=== PATIENT | male | born 1950 | race Caucasian/White ===

== ENCOUNTER 2016-08-21 13:25 | Emergency (ER) | payer OTHER ==
[2016-08-21] MEDS ORDERED: ASPIRIN PO STA (13:37)
--- NOTE | 2016-08-21 13:46 | EKG Report ---
Test Performed on : 08/21/2016 1:36:00 PM Test Reason : SOB Blood Pressure : / mmHG Vent. Rate : 065 BPM Atrial Rate : 065 BPM P-R Int : 146 ms QRS Dur : 142 ms QT Int : 462 ms P-R-T Axes : 071 -82 096 degrees QTc Int : 480 ms Normal sinus rhythm. Left axis deviation Nonspecific intraventricular block T wave abnormality, consider anterolateral ischemia Abnormal ECG When compared with ECG of 21-DEC-2015 14:10, Sinus rhythm. has replaced Electronic ventricular pacemaker Unconfirmed Result
[2016-08-21 14:03] LABS: MANUAL DIFF NEEDED? NO
[2016-08-21 14:08] LABS: BASO% 0.3 % (0.0-0.8); EOS# 0.29 X1000 (0.0-0.7); EOS% 2.9 % (0.0-10.0); HEMATOCRIT 41.8 % (42.0-52.0); HEMOGLOBIN 13.3 g/dL (14.0-18.0); IMM GRAN# 0.04 X1000 (0.0-0.04); IMM GRAN% 0.4 % (0.0-0.5); LYMPH# 1.64 X1000 (1.2-3.4); LYMPH% 16.4 % (20.5-51.1); MCH 28.9 PG (27-31); MCHC 31.8 g/dL (33-37); MCV 90.7 FL (81-99); MONO# 0.61 X1000 (0.11-0.59); MONO% 6.1 % (1.7-9.3); MPV 10.5 FL (7.4-10.4); NEUT% 73.9 % (42.2-75.2); PLT 233 X1000 (130-400); RBC 4.61 XMIL (4.7-6.1)
[2016-08-21 14:26] LABS: INR 1.04 (0.86-1.15); PROTIME 13.9 Seconds (12.1-15.5)
[2016-08-21 14:27] LABS: PTT PL 35.6 Seconds (22.6-43.9)
[2016-08-21 14:31] LABS: AGAP 9; ALBUMIN 3.5 g/dL (3.5-5.0); ALKALINE PHOSPHATASE 96 U/L (32-122); BUN 20 mg/dL (8-22); CHLORIDE 96 mmol/L (98-107); CK PROFILE 57 U/L (24-204); COSMO 265; GOT 16 U/L (10-34); GPT 9 U/L (10-44); MAGNESIUM 1.7 mg/dL (1.5-2.7); POTASSIUM 4.2 mmol/L (3.5-5.1); SODIUM 131 mmol/L (136-145); TCO2 26 mmol/L (25-35); TOTAL PROTEIN 7.3 g/dL (6.3-8.3)
--- NOTE | 2016-08-21 14:33 | PROVIDER DOCUMENTATION ---
HPI-Chest Pain - General Chief Complaint: Chest Pain Stated Complaint: CHEST PAIN Time Seen by Provider: 08/21/16 14:15 Source: patient, family Allergies/Adverse Reactions: Patient Allergies Allergy/AdvReac Type Severity Reaction Status Date / Time meperidine HCl * AdvReac NAUSEA/VOMI Verified 08/21/16 13:32 [From Demerol] TING morphine AdvReac NAUSEA/VOMI Verified 08/21/16 13:32 TING Home Medications: Aspirin 81 mg 12/21/15 Clopidogrel Bisulfate [Plavix] 75 mg PO 12/21/15 Hydrocodone/Acetaminophen [[place] 7.5-325 Tablet] 7.5 mg PO 12/21/15 - History of Present Illness-CP Nature of Presenting Problem: HX of vascular disease,cardiac stents,left cartoid stents and 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 pt reports intermittently past 3 months left anterior cp nonradiating with right hand numbness,dizziness,nausea. Reconnaissance Man Location: reports: other (left anterior) Chest Pain Radiation: reports: no radiation Quality of Pain: reports: aching Severity in ED: moderate (5/10) Onset/Duration: other (3 mo) Timing: still present Nitro Today/Relief: no nitro taken today Aspirin Treatment Today: no aspirin today Similar Symptoms Previously?: Yes Recently Seen Here or By Another Healthcare Provider: No Review of Systems - Adult - REVIEW OF SYSTEMS - ADULT Constitutional: denies: chills, fever, fatique Eyes: reports: no symptoms reported Ears, Nose, Mouth & Throat: reports: no symptoms reported Cardiovascular: reports: chest pain. denies: irregular heart rate, orthopnea, syncope Respiratory: denies: cough, shortness of breath, wheezing Gastrointestinal: reports: nausea. denies: abdominal pain, diarrhea, vomiting Genitourinary: reports: no symptoms reported Musculoskeletal: reports: no symptoms reported Integumentary: reports: no symptoms reported Neurological: reports: dizziness/vertigo, numbness. denies: headache/migraines , loss of balance, paresthesia Psychiatric: reports: no symptoms reported Endocrine: reports: no symptoms reported Hematologic/Lymphatic: reports: no symptoms reported Allergic/Immunologic: reports: no symptoms reported All Other Systems: Reviewed and Negative Past History - Adult - PAST MEDICAL HISTORY-ADULT Review of Records: reports: Nursing Assessment Review Major Childhood Illnesses: reports: denies history Cardiovascular: reports: [place], pacemaker, other (stents) Neurological: reports: CVA Other Conditions: reports: denies history - PRIOR SURGERIES/PROCEDURES Surgical/Procedure History: reports: other (stents) - IMMUNIZATION STATUS Childhood Immunizations: See Nurse Assessment Flu Vaccine: See Nurse Assessment - FAMILY HISTORY Family History: reviewed, not pertinent - SOCIAL HISTORY Smoking: quit less than 1 year, cigarettes, less than 1 pack/day Substance Use: none/never Physical Exam-General - PHYSICAL EXAM-ADULT Initial Vital Signs Reviewed: Yes - CONSTITUTIONAL General Appearance: alert, no apparent distress, thin - EYES Eyes: PERRL/EOMI, pink conjunctivae - HEAD, EARS, NOSE, MOUTH & THROAT HENMT: normocephalic/atraumatic, moist mucous membranes, normal ENT inspection, other (multiple missing teeth) - NECK Neck: non-tender, full range of motion, normal inspection - RESPIRATORY Respiratory: chest non-tender, lungs clear, normal breath sounds - CARDIOVASCULAR Cardiovascular: normal peripheral pulses, regular rate, rhythm, no edema - GASTROINTESTINAL (ABDOMEN) Abdominal Exam: normal bowel sounds, non tender, soft - LYMPHATIC Lymphatic: no adenopathy - MUSCULOSKELETAL Back Exam: normal inspection, no CVA tenderness, no vertebral tenderness Extremity: normal range of motion, non-tender, normal gait - SKIN Integumentary: normal color, normal turgor, warm/dry - NEUROLOGIC Neurologic: grossly normal, no motor/sensory deficits - PSYCHIATRIC Psych/Mental Status: normal mood/affect, normal thought content, normal thought process, oriented x 3 Progress - PLAN OF CARE/RESULTS Progress/Plan/Lab Results: Orders Category Date Time Status Cardiac Monitoring DIRECTED Care 08/21/16 13:37 Active Oxygen Therapy- ED Nursing DIRECTED Care 08/21/16 13:37 Active Saline Loc NOW Care 08/21/16 13:37 Active CHEST-2 VIEWS [RAD] Stat Exams 08/21/16 13:37 Taken CBC WITH ELECTRONIC DIFF [HEME] Stat Lab 08/21/16 13:52 Completed CK PROFILE [SP CHEM] Stat Lab 08/21/16 13:52 Completed COMPREHENSIVE METABOLIC PANEL [CHEM] Stat Lab 08/21/16 13:[address] D-DIMER PL [COAG] Stat Lab 08/21/16 13:52 Completed MAGNESIUM [CHEM] Stat Lab 08/21/16 13:52 Completed PRO B-NATRIURETIC PEPTIDE Stat Lab 08/21/16 13:[address] Received [address]IME WITH INR PL [COAG] Stat Lab 08/21/16 13:[address] [COAG] Stat Lab 08/21/16 13:52 Completed TROPONIN T Stat Lab 08/21/16 13:52 Completed Aspirin Med 08/21/16 13:37 Discontinued 325 mg PO STAT STA EKG [EKG] Stat Ther 08/21/16 13:37 Draft Vital Signs - 24 hr 08/21/16 13:27 Pulse Rate 75 Respiratory 18 Rate O2 Sat by Pulse 96 Oximetry Laboratory Tests 08/21/16 08/21/16 08/21/16 13:52 13:52 13:52 WBC RBC Hgb Hct MCV MCH MCHC RDW Std Deviation Plt Count MPV Immature Gran % (Auto) Neut % (Auto) Lymph % (Auto) [place] % (Auto) Eos % (Auto) Baso % (Auto) Immature Gran # (Auto) Neut # (Auto) Lymph # (Auto) [place] # (Auto) Eos # (Auto) Baso # (Auto) PT INR APTT (Factor Assay) D-Dimer Sodium 131 L Potassium 4.2 Chloride 96 L Carbon Dioxide 26 Anion Gap 9 BUN 20 Creatinine 0.9 Estimated GFR/1.73 m2 > 60 BUN/Creatinine Ratio 22 Glucose 99 Calculated Osmolality 265 Calcium 9.0 Magnesium 1.7 Total Bilirubin 0.40 AST 16 ALT 9 L Alkaline Phosphatase 96 Creatine Kinase 57 Troponin T < 0.010 Bos-T-Glvqqedysiw Pept 4061 H Total Protein 7.3 Albumin 3.5 Globulin 4.0 Albumin/Globulin Ratio 1.0 08/21/16 08/21/16 13:52 13:52 WBC 9.99 RBC 4.61 L Hgb 13.3 L Hct 41.8 L MCV 90.7 MCH 28.9 MCHC 31.8 L RDW Std Deviation 15.4 H Plt Count 233 MPV 10.5 H Immature Gran % (Auto) 0.4 Neut % (Auto) 73.9 Lymph % (Auto) 16.4 L Wake % (Auto) 6.1 Eos % (Auto) 2.9 Baso % (Auto) 0.3 Immature Gran # (Auto) 0.04 Neut # (Auto) 7.38 H Lymph # (Auto) 1.64 Wake # (Auto) 0.61 H Eos # (Auto) 0.29 Baso # (Auto) 0.03 PT 13.9 INR 1.04 APTT (Factor Assay) 35.6 D-Dimer 1.26 H Sodium Potassium Chloride Carbon Dioxide Anion Gap BUN Creatinine Estimated GFR/1.73 m2 BUN/Creatinine Ratio Glucose Calculated Osmolality Calcium Magnesium Total Bilirubin AST ALT Alkaline Phosphatase Creatine Kinase Troponin T Dkv-O-Goxtgizuhod Pept Total Protein Albumin Globulin Albumin/Globulin Ratio Pt will have a PE study done due to elevated DDimer Orders Category Date Time Status Cardiac Monitoring DIRECTED Care 08/21/16 13:37 Active Oxygen Therapy- ED Nursing DIRECTED Care 08/21/16 13:37 Active Saline Loc NOW Care 08/21/16 13:37 Active ANGIOGRAM/PULMONARY ARTERIES [CT] Stat Exams 08/21/16 15:04 Ordered CHEST-2 VIEWS [RAD] Stat Exams 08/21/16 13:37 Draft CBC WITH ELECTRONIC DIFF [HEME] Stat Lab 08/21/16 13:52 Completed CK PROFILE [SP CHEM] Stat Lab 08/21/16 13:52 Completed COMPREHENSIVE METABOLIC PANEL [CHEM] Stat Lab 08/21/16 13:[address] D-DIMER [address] [COAG] Stat Lab 08/21/16 13:52 Completed MAGNESIUM [CHEM] Stat Lab 08/21/16 13:52 Completed PRO B-NATRIURETIC PEPTIDE Stat Lab 08/21/16 13:52 Completed PROTIME WITH INR PL [COAG] Stat Lab 08/21/16 13:[address] [COAG] Stat Lab 08/21/16 13:52 Completed TROPONIN T Stat Lab 08/21/16 13:52 Completed Aspirin Med 08/21/16 13:37 Discontinued 325 mg PO STAT STA EKG [EKG] Stat Ther 08/21/16 13:37 Draft Discussed poc/treatment/dishcharge with pt; pt verbally agreed and understood. Pt also agreed to follow up with his [facility] doctors as recommended on CT. - EKG 1 Time of EKG reading by physician:: 13:36 EKG Read and Signed by:: Millie Lyn Jr EKG Interpretation (*Must complete 3 of following elements*): Abnormal ( nonspecific intraventricular block) Rate: 65 Rhythm: nsr Loyal: left - XRAY 1 XRAY: Bilateral XRAY Study: Chest Impression: Normal (no acute disease or change from prior) Comparison with other Films: no changes - CT/MRI 1 CT Study: Angiogram, other (pulmonary) Impression: Abnormal (NO PE; 18mm x12mm infiltrate vs semifold nodule HAROLDO new from prior 12/21/15. F/U rec. Marked emphysema, unchangeed RU scarring, no ptx) Departure - Departure Time of Disposition Order: 16:07 DIAGNOSIS: Pneumonia Qualifiers: Pneumonia type: due to unspecified organism Laterality: unspecified laterality Lung location: unspecified part of lung Qualified Code(s): J18.9 - Pneumonia, unspecified organism Disposition: HOME 01 Certified Medical Emergency: Emergent Condition: Stable Additional Instructions: follow up with [facility] ED Follow Up Instructions: You have been treated by a care provider in the Emergency Department. These instructions are being provided to you so you can have an understanding of how to care for yourself upon discharge. Upon discharge from the Emergency Department, you are responsible for making arrangements for follow-up care by a physician of your choice. Take all prescribed medications as directed. Return to the Emergency Department immediately for any new or worsening symptoms. You may call the Physician Referral phone number at [phone] to obtain a list of Physicians who are taking new patients. Referrals: None,PCP [Primary Care Provider] - Attestation - Scribe Verification/Attestation Scribe:: Giovanna Montgomery Acting as Scribe for:: Millie Lyn Jr Scribe documention review:: This chart was documented by a scribe and accurately reflects the service the provider performed and the decisions made by the provider.
--- NOTE | 2016-08-21 14:43 | Diag Imaging Result Document ---
PROCEDURE NAME: CHEST-2 VIEWS - 08/21/2016 CHEST X-RAY, 2 VIEWS: COMPARISON: 12/21/2015. FINDINGS: There is a stable right-sided biventricular pacemaker. Stable hyperexpanded lungs compatible with COPD. Stable significant biapical pleural scarring. Stable blunting of the costophrenic angles, most likely due to scarring. No definite infiltrates. Heart size remains normal. IMPRESSION: No acute disease or change from prior.
--- NOTE | 2016-08-21 16:12 | Diag Imaging Result Document ---
PROCEDURE NAME: ANGIOGRAM/PULMONARY ARTERIES - 08/21/2016 CT ANGIOGRAM OF THE PULMONARY ARTERIES WITH IV CONTRAST: INDICATION: Dyspnea. Elevated D-dimer. COMPARISON: 12/21/2015. FINDINGS: There is appropriate opacification of the pulmonary arteries and segmental branches. There is marked pulmonary emphysema with multiple bulla noted. Irregular increased attenuation within the posterolateral right upper lobe is unchanged when compared with previous study, most consistent with parenchymal scarring. There is irregular scarring within both lung apices. There is a new small infiltrate or semisolid nodule involving the left upper lobe measuring 18 mm, best seen on image 16 sequence 5 and image 66 of the coronal reconstructions. Otherwise, the appearance of the lungs is unchanged with linear fibrosis at the bases and prominent reticular markings. There is a stable probable cyst, which is partially visualized involving the upper pole of the left kidney. No pleural effusions or pneumothorax. Mediastinal lymphadenopathy is stable. The largest precarinal lymph node measures 12 mm in short axis.There is a right- sided pacemaker. IMPRESSION: 1. No evidence for acute pulmonary embolism. 2. New 18 x 12 mm semisolid nodule versus infiltrate within the anterior left upper lobe best seen on image 16 sequence 5 and on the coronal reconstructions. Followup is recommended. 3. Marked pulmonary emphysema. 4. Stable mediastinal lymphadenopathy. 5. Stable irregular opacity posterolateral right upper lobe suggestive of scarring. [facility]
[2016-08-21 17:56] VITALS: BP 123/62
== END 2016-08-21 17:55 | disposition home or self-care (01) ==
LOC: P.ED 13:25
DX: J18.9 Pneumonia, unspecified organism (principal); R94.31 Abnormal electrocardiogram [ECG] [EKG]; R07.89 Other chest pain; R20.0 Anesthesia of skin; R42 Dizziness and giddiness; R11.0 Nausea; K00.0 Anodontia; I25.2 Old myocardial infarction; Z79.02 Long term (current) use of antithrombotics/antiplatelets; Z79.82 Long term (current) use of aspirin; Z95.5 Presence of coronary angioplasty implant and graft; Z86.73 Personal history of transient ischemic attack (TIA), and cerebral infarction without residual deficits; Z87.891 Personal history of nicotine dependence
CPT/HCPCS: 71020; 71275; 80053; 82550; 83735; 83880; 84484; 85025; 85379; 85610; 85730; 93005; Q9967

== ENCOUNTER 2016-10-14 18:40 | Emergency (ER) | payer OTHER ==
--- NOTE | 2016-10-14 18:59 | ED EKG INTERP ---
EKG Interpretation - EKG Time of EKG reading by physician:: 18:44 EKG Read and Signed by:: Manuel Jackman EKG Interpretation (*Must complete 3 of following elements*): Abnormal Rate: 67 Rhythm: Sinus Rhythm Comments: Q2,Q3,F, NSSTTD Attestation - Scribe Verification/Attestation Scribe:: Inés Moore Acting as Scribe for:: Manuel Jackman Scribe documention review:: This chart was documented by a scribe and accurately reflects the service the provider performed and the decisions made by the provider.
--- NOTE | 2016-10-14 19:21 | PROVIDER DOCUMENTATION ---
HPI-Chest Pain <MarieDestiny A. - Last Filed: 10/14/16 19:33> - General Source: patient - History of Present Illness-CP Location: reports: central Chest Pain Radiation: reports: arms (RUE) Quality of Pain: reports: aching Severity in ED: moderate Onset/Duration: this evening Timing: still present Context/Activities at Onset: reports: none Associated Symptoms: denies: fever/chills, nausea, shortness of breath Nitro Today/Relief: no nitro taken today Aspirin Treatment Today: no aspirin today <Inés Moore - Last Filed: 10/15/16 00:11> - General Chief Complaint: Chest Pain Stated Complaint: CHEST PAIN Time Seen by Provider: 10/14/16 18:52 Allergies/Adverse Reactions: Patient Allergies Allergy/AdvReac Type Severity Reaction Status Date / Time levofloxacin [From Levaquin] Allergy Unknown ITCHING Verified 10/14/16 18:50 meperidine HCl * AdvReac Unknown NAUSEA/VOMI Verified 10/14/16 18:50 [From Demerol] TING morphine AdvReac Unknown NAUSEA/VOMI Verified 10/14/16 18:50 TING Home Medications: Home Medication List Medication Instructions Recorded Confirmed Last Taken Type Aspirin 81 mg PO DAILY 12/21/15 10/14/16 Unknown History Clopidogrel Bisulfate [Plavix] 75 mg PO DAILY 12/21/15 10/14/16 Unknown History Hydrocodone/Acetaminophen [[place] 7.5 mg PO DAILY 12/21/15 10/14/16 Unknown History 7.5-325 Tablet] Allopurinol 100 mg PO DAILY 10/14/16 10/14/16 Unknown History Carvedilol 12.5 mg PO DAILY 10/14/16 10/14/16 Unknown History ENALApril [Vasotec] 5 mg PO DAILY 10/14/16 10/14/16 Unknown History Folic Acid 1 mg PO DAILY 10/14/16 10/14/16 Unknown History Furosemide 20 mg PO DAILY 10/14/16 10/14/16 Unknown History Spironolactone 25 mg PO DAILY 10/14/16 10/14/16 Unknown History - History of Present Illness-CP Nature of Presenting Problem: 66 Y/O M presents to ED with CP. Pt complains off an onset of Chest pain and headache with onset this evening around 1700. Pt states slurred speech, with weakness in his RUE. Hx of strokes states has resolved. C/o of Headache in his posterior scalp. Chest Pain began 30 mins after dinner, states the chest pain is still present but has lessened. Denies any other symptoms , but numbness and tingling in RUE. (Inés Moore) Review of Systems - Adult - REVIEW OF SYSTEMS - ADULT Constitutional: denies: chills, fever Eyes: reports: no symptoms reported Ears, Nose, Mouth & Throat: reports: no symptoms reported Cardiovascular: reports: chest pain. denies: syncope Respiratory: denies: cough, shortness of breath, wheezing Gastrointestinal: denies: abdominal pain, diarrhea, nausea, vomiting Genitourinary: reports: no symptoms reported Musculoskeletal: reports: no symptoms reported Integumentary: reports: no symptoms reported Neurological: reports: headache/migraines, numbness. denies: loss of balance Psychiatric: reports: no symptoms reported Endocrine: reports: no symptoms reported Hematologic/Lymphatic: reports: no symptoms reported Allergic/Immunologic: reports: no symptoms reported All Other Systems: Reviewed and Negative <Inés Moore - Last Filed: 10/15/16 00:11> Past History - Adult - PAST MEDICAL HISTORY-ADULT Review of Records: reports: Old Records Reviewed, Nursing Assessment Review, Medications Reviewed, Social history reviewed & non-contributory. Major Childhood Illnesses: reports: denies history Cardiovascular: reports: [place], pacemaker, other (stents) Neurological: reports: CVA Other Conditions: reports: denies history - PRIOR SURGERIES/PROCEDURES Surgical/Procedure History: reports: other (stents) - IMMUNIZATION STATUS Childhood Immunizations: See Nurse Assessment Flu Vaccine: See Nurse Assessment - FAMILY HISTORY Family History: reviewed, not pertinent - SOCIAL HISTORY Smoking: cigarettes, less than 1 pack/day <Inés Moore - Last Filed: 10/15/16 00:11> Physical Exam-General - CONSTITUTIONAL General Appearance: appears well, alert, no apparent distress - EYES Eyes: PERRL/EOMI, pink conjunctivae, fundi clear, no AV nicking - HEAD, EARS, NOSE, MOUTH & THROAT HENMT: normocephalic/atraumatic, moist mucous membranes, normal ENT inspection, TMs normal - NECK Neck: non-tender, full range of motion, supple, normal inspection - RESPIRATORY Respiratory: chest non-tender, lungs clear, normal breath sounds, wheezing ( mild in left lower lobe) - CARDIOVASCULAR Cardiovascular: normal peripheral pulses, regular rate, rhythm - GASTROINTESTINAL (ABDOMEN) Abdominal Exam: normal bowel sounds, non tender, soft - LYMPHATIC Lymphatic: no adenopathy - MUSCULOSKELETAL Back Exam: normal inspection Extremity: normal range of motion, non-tender - SKIN Integumentary: normal color, normal turgor - NEUROLOGIC Neurologic: program evaluation consultant II-XII nml as tested, facial droop (right lip but can be from previous strokes normal smile) - PSYCHIATRIC Psych/Mental Status: normal mood/affect, normal thought content, normal thought process, oriented x 3 <Inés Moore - Last Filed: 10/15/16 00:11> Progress - CHANGE OF SHIFT REPORT (ED Provider) Report Given and Care Transferred to:: Dr. Jackman Time of Transfer: 19:33 Items Pending: Labs, XRAY Results, CT/MRI Results <Destiny Salazar - Last Filed: 10/14/16 19:33> - EKG 1 Time of EKG reading by physician:: 23:02 EKG Read and Signed by:: aMnuel Jackman EKG Interpretation (*Must complete 3 of following elements*): Abnormal Rate: 60 Rhythm: Sinus Rhythm with fusion complexes [place]: left Prior EKG Comparison: unchanged from prior Comments: Abnormal ECG - XRAY 1 XRAY Study: Chest Impression: Normal Comparison with other Films: no changes XRAY Interpretation: No changes from prior 08/21/2016 - CT/MRI 1 CT Study: Head Impression: Normal (No blood, Old right infracts) CT Results: NAD <Inés Moore - Last Filed: 10/15/16 00:11> - PLAN OF CARE/RESULTS Progress/Plan/Lab Results: Laboratory Tests 10/14/16 10/14/16 10/14/16 18:50 18:50 18:50 WBC RBC Hgb Hct MCV MCH MCHC RDW Std Deviation Plt Count MPV Immature Gran % (Auto) Neut % (Auto) Lymph % (Auto) [place] % (Auto) Eos % (Auto) Baso % (Auto) Immature Gran # (Auto) Neut # (Auto) Lymph # (Auto) [place] # (Auto) Eos # (Auto) Baso # (Auto) PT INR APTT (Factor Assay) Sodium 134 L Potassium 4.4 Chloride 95 L Carbon Dioxide 26 Anion Gap 14 BUN 23 H Creatinine 1.5 H Estimated GFR/1.73 m2 47 BUN/Creatinine Ratio 15 Glucose 117 H Calculated Osmolality 273 Calcium 10.7 H Magnesium 1.9 Total Bilirubin 0.80 AST 16 ALT 12 Alkaline Phosphatase 105 Creatine Kinase 53 Troponin T < 0.010 Esl-N-Astwqinhiaw Pept 2378 H Total Protein 9.3 H Albumin 4.7 Globulin 5.0 Albumin/Globulin Ratio 1.0 10/14/16 10/14/16 10/14/16 18:50 18:50 23:05 WBC 8.65 RBC 5.60 Hgb 15.9 Hct 49.7 MCV 88.8 MCH 28.4 MCHC 32.0 L RDW Std Deviation 16.9 H Plt Count 315 MPV 10.2 Immature Gran % (Auto) 0.3 Neut % (Auto) 70.2 Lymph % (Auto) 19.7 L [place] % (Auto) 6.4 Eos % (Auto) 2.9 Baso % (Auto) 0.5 Immature Gran # (Auto) 0.03 Neut # (Auto) 6.08 Lymph # (Auto) 1.70 [place] # (Auto) 0.55 Eos # (Auto) 0.25 Baso # (Auto) 0.04 PT 13.7 INR 1.02 APTT (Factor Assay) 34.5 Sodium Potassium Chloride Carbon Dioxide Anion Gap BUN Creatinine Estimated GFR/1.73 m2 BUN/Creatinine Ratio Glucose Calculated Osmolality Calcium Magnesium Total Bilirubin AST ALT Alkaline Phosphatase Creatine Kinase Troponin T < 0.010 Xbq-I-Fvxgnppwepa Pept Total Protein Albumin Globulin Albumin/Globulin Ratio Orders Category Date Time Status Cardiac Monitoring DIRECTED Care 10/14/16 19:20 Active Oxygen Therapy- ED Nursing DIRECTED Care 10/14/16 19:20 Active CHEST-2 VIEWS [RAD] Stat Exams 10/14/16 19:20 Taken HEAD W/O CONTRAST [CT] Stat Exams 10/14/16 19:21 Draft CBC WITH ELECTRONIC DIFF [HEME] Stat Lab 10/14/16 18:50 Completed CK PROFILE [SP CHEM] Stat Lab 10/14/16 18:50 Completed COMPREHENSIVE METABOLIC PANEL [CHEM] Stat Lab 10/14/16 18:50 Completed MAGNESIUM [CHEM] Stat Lab 10/14/16 18:50 Completed PRO B-NATRIURETIC PEPTIDE Stat Lab 10/14/16 18:50 Completed PROTIME WITH INR PL [COAG] Stat Lab 10/14/16 18:[address] [COAG] Stat Lab 10/14/16 18:50 Completed TROPONIN T Stat Lab 10/14/16 18:50 Completed TROPONIN T Stat Lab 10/14/16 23:05 Completed EKG [EKG] Stat Ther 10/14/16 22:34 Ordered Vital Signs - 24 hr 10/14/16 10/14/16 10/14/16 18:43 19:45 21:19 Temperature 98 F 98.7 F 98.5 F Pulse Rate 77 63 60 Respiratory 18 20 25 H Rate Blood Pressure 88/52 96/52 115/23 O2 Sat by Pulse 98 96 97 Oximetry (Inés Moore) Departure <Destiny Salazar - Last Filed: 10/14/16 19:33> - Departure Time of Disposition Order: 00:11 Certified Medical Emergency: Emergent <Inés Moore - Last Filed: 10/15/16 00:11> - Departure DIAGNOSIS: Ischemic heart disease, Dehydration COPD (chronic obstructive pulmonary disease) Qualifiers: COPD type: unspecified COPD Qualified Code(s): J44.9 - Chronic obstructive pulmonary disease, unspecified CHF (congestive heart failure) Qualifiers: Congestive heart failure type: unspecified congestive heart failure type Congestive heart failure chronicity: unspecified congestive heart failure chronicity Qualified Code(s): I50.9 - Heart failure, unspecified Disposition: HOME 01 Condition: Stable Additional Instructions: Follow up with [facility] ED Follow Up Instructions: You have been treated by a care provider in the Emergency Department. These instructions are being provided to you so you can have an understanding of how to care for yourself upon discharge. Upon discharge from the Emergency Department, you are responsible for making arrangements for follow-up care by a physician of your choice. Take all prescribed medications as directed. Return to the Emergency Department immediately for any new or worsening symptoms. You may call the Physician Referral phone number at [phone] to obtain a list of Physicians who are taking new patients. Referrals: None,PCP [Primary Care Provider] - Attestation - Scribe Verification/Attestation Scribe:: Inés Moore Acting as Scribe for:: Manuel Jackman Scribe documention review:: This chart was documented by a scribe and accurately reflects the service the provider performed and the decisions made by the provider. - Physician/ JAVIER Attestation Patient care was provided by Advanced Practice Provider:: Yes Advanced Practice Provider:: Destiny Salazar Advanced Practice Provider documentation review:: The Mid-level provider documentation, treatment plan and medical decision making was reviewed by the physician who agrees with all treatment and medical decision making by the MLP. <Inés Moore - Last Filed: 10/15/16 00:11> Physician Attestation
[2016-10-14 19:29] LABS: MANUAL DIFF NEEDED? NO
[2016-10-14 19:34] LABS: BASO% 0.5 % (0.0-0.8); EOS# 0.25 X1000 (0.0-0.7); EOS% 2.9 % (0.0-10.0); HEMATOCRIT 49.7 % (42.0-52.0); HEMOGLOBIN 15.9 g/dL (14.0-18.0); IMM GRAN# 0.03 X1000 (0.0-0.04); IMM GRAN% 0.3 % (0.0-0.5); LYMPH% 19.7 % (20.5-51.1); MCH 28.4 PG (27-31); MCV 88.8 FL (81-99); MONO# 0.55 X1000 (0.11-0.59); MONO% 6.4 % (1.7-9.3); MPV 10.2 FL (7.4-10.4); NEUT% 70.2 % (42.2-75.2); PLT 315 X1000 (130-400)
[2016-10-14 19:56] LABS: ALBUMIN 4.7 g/dL (3.5-5.0); CALCIUM 10.7 mg/dL (8.8-10.2); MAGNESIUM 1.9 mg/dL (1.5-2.7); POTASSIUM 4.4 mmol/L (3.5-5.1); TOTAL BILIRUBIN 0.8 mg/dL (0.20-1.00); TOTAL PROTEIN 9.3 g/dL (6.3-8.3)
[2016-10-14 20:05] LABS: INR 1.02 (0.86-1.15); PROTIME 13.7 Seconds (12.1-15.5)
[2016-10-14 20:06] LABS: PTT PL 34.5 Seconds (22.6-43.9)
--- NOTE | 2016-10-14 22:27 | Diag Imaging Result Document ---
PROCEDURE NAME: HEAD W/O CONTRAST - 10/14/2016 STUDY: CT brain without contrast. COMPARISON: Compared to 12/21/2015. No parenchymal hemorrhage. No epidural or subdural hematoma. No subarachnoid hemorrhage. No hydrocephalus. Small old right basal ganglia infarct similar to the prior exam. Old right cerebellar infarct. No hydrocephalus. No sinus opacification. Small amount of mucus in the left maxillary sinus. IMPRESSION: 1. No hemorrhage. 2. Old infarcts. A preliminary report was given at 8:40 p.m.
[2016-10-15 00:14] VITALS: BP 127/60
--- NOTE | 2016-10-15 03:49 | EKG Report ---
Test Performed on : 10/14/2016 11:02:00 PM Test Reason : 2nd set cardiacs Blood Pressure : / mmHG Vent. Rate : 060 BPM Atrial Rate : 060 BPM P-R Int : 122 ms QRS Dur : 140 ms QT Int : 488 ms P-R-T Axes : 061 -80 093 degrees QTc Int : 488 ms Sinus rhythm. with fusion complexes Left axis deviation Nonspecific intraventricular block Possible Lateral infarct (cited on or before 14-OCT-2016) Inferior infarct , age undetermined Abnormal ECG When compared with ECG of 14-OCT-2016 18:44, (Unconfirmed) fusion complexes are now present Serial changes of Lateral infarct present Unconfirmed Result
--- NOTE | 2016-10-15 04:59 | EKG Report ---
Test Performed on : 10/14/2016 6:44:36 PM Test Reason : CP Blood Pressure : / mmHG Vent. Rate : 067 BPM Atrial Rate : 067 BPM P-R Int : 142 ms QRS Dur : 128 ms QT Int : 440 ms P-R-T Axes : 071 -74 098 degrees QTc Int : 464 ms Normal sinus rhythm. Left axis deviation Nonspecific intraventricular block Possible Lateral infarct , age undetermined Abnormal ECG When compared with ECG of 21-AUG-2016 13:36, Borderline criteria for Lateral infarct are now present T wave inversion less evident in Anterior leads Unconfirmed Result
--- NOTE | 2016-10-15 06:48 | Diag Imaging Result Document ---
PROCEDURE NAME: CHEST-2 VIEWS - 10/14/2016 FRONTAL AND LATERAL CHEST, TWO VIEWS: COMPARISON: Compared to 08/21/2016. FINDINGS: The lungs are well expanded. Mild increased AP diameter to the chest. The patient has a right-sided pacemaker. No pleural effusions. The pulmonary vessels are small. There are increased markings in the apices consistent with fibrosis. No pneumonia. No free air beneath the diaphragm. IMPRESSION: Stable chest.
== END 2016-10-15 00:19 | disposition home or self-care (01) ==
LOC: P.ED 18:40
DX: I25.9 Chronic ischemic heart disease, unspecified (principal); I50.9 Heart failure, unspecified; J44.9 Chronic obstructive pulmonary disease, unspecified; E86.0 Dehydration; R94.31 Abnormal electrocardiogram [ECG] [EKG]; R07.89 Other chest pain; M79.601 Pain in right arm; R51 Headache; Z79.899 Other long term (current) drug therapy; R47.81 Slurred speech; M62.81 Muscle weakness (generalized); R20.0 Anesthesia of skin; R20.2 Paresthesia of skin; R06.2 Wheezing; R29.810 Facial weakness; I25.2 Old myocardial infarction; Z86.73 Personal history of transient ischemic attack (TIA), and cerebral infarction without residual deficits; Z79.02 Long term (current) use of antithrombotics/antiplatelets; Z95.5 Presence of coronary angioplasty implant and graft; F17.210 Nicotine dependence, cigarettes, uncomplicated
CPT/HCPCS: 70450; 71020; 80053; 82550; 83735; 83880; 84484; 85025; 85610; 85730; 93005

== ENCOUNTER 2018-10-27 09:49 | Inpatient (IN) ==
[2018-10-27 10:32] LABS: BASO# 0.02 X1000 (0.0-0.2); BASO% 0.3 % (0.0-0.8); EOS# 0.23 X1000 (0.0-0.7); EOS% 2.9 % (0.0-10.0); HEMATOCRIT 30.2 % (42.0-52.0); HEMOGLOBIN 9.3 g/dL (14.0-18.0); IMM GRAN# 0.03 X1000 (0.0-0.04); IMM GRAN% 0.4 % (0.0-0.5); LYMPH# 0.95 X1000 (1.2-3.4); LYMPH% 12.1 % (20.5-51.1); MCH 26.1 PG (27-31); MCHC 30.8 g/dL (33-37); MCV 84.8 FL (81-99); MONO# 0.43 X1000 (0.11-0.59); MONO% 5.5 % (1.7-9.3); MPV 10.2 FL (7.4-10.4); NEUT% 78.8 % (42.2-75.2); PLT 344 X1000 (130-400); RBC 3.56 XMIL (4.7-6.1); RDW 16.5 % (11.5-14.5); WBC 7.86 X1000 (4.8-10.8)
--- NOTE | 2018-10-27 10:36 | Diag Imaging Result Doc PS360 ---
CHEST-PORTABLE - 10/27/2018 INDICATION: shortness of breath COMPARISON: 08/03/2018 FINDINGS: Stable biventricular pacemaker. There is cardiomegaly and pulmonary vascular congestion that has worsened since prior. There is some fine interstitial infiltrate suggesting pulmonary edema. There is also dense focal infiltrate in the right lower lobe. IMPRESSION: Cardiomegaly with pulmonary edema plus or minus pneumonia. Electronically signed by Israel Zapata 10/27/2018 10:34 AM
--- NOTE | 2018-10-27 10:56 | EKG Report ---
Test Performed on : 10/27/2018 09:52:24 AM Test Reason : ER Blood Pressure : / mmHG Vent. Rate : 084 BPM Atrial Rate : 084 BPM P-R Int : 132 ms QRS Dur : 160 ms QT Int : 452 ms P-R-T Axes : 095 -77 113 degrees QTc Int : 534 ms Sinus rhythm. with occasional ventricular-paced complexes and with occasional premature ventricular c omplexes. Left axis deviation Nonspecific intraventricular block Possible Lateral infarct , age undetermined T wave abnormality, consider anterior ischemia Abnormal ECG When compared with ECG of 02-AUG-2018 10:06, Electronic ventricular pacemaker has replaced Sinus rhythm. Unconfirmed Result
[2018-10-27 11:27] LABS: ALBUMIN 3.2 g/dL (3.5-5.0); CALCIUM 8.7 mg/dL (8.8-10.2); CREATININE 2.7 mg/dL (0.7-1.2); POTASSIUM 3.5 mmol/L (3.5-5.1); TOTAL PROTEIN 6.6 g/dL (6.3-8.3)
[2018-10-27] MEDS ORDERED: DOBUTAMINE ONE (12:44)
[2018-10-27] MEDS ORDERED: ROCEPHIN 1 GM in NS 50 ML IV SCH (12:45)
--- NOTE | 2018-10-27 12:45 | PROVIDER DOCUMENTATION ---
This chart was entered by Jennifer Hathaway Scribe, acting as scribe for Yolanda Valadez MD. HPI-Musculoskeletal Pain/Inj - GENERAL Chief Complaint: Shoulder Pain Stated Complaint: Shoulder pain Time Seen by Provider: 10/27/18 09:57 Source: patient - HX OF PRESENT ILLNESS-MUSKULOSKELTAL Nature of Presenting Problem: Patient is a 68 year old male who presents to the ED via EMS with bilateral shoulder pain. Patient states pain has been present for "a while" intermittently. Patient states this episode of pain started yesterday. Patient denies chest pain and shortness of breath. Quality of Pain: reports: aching Severity in ED: mild Onset/Duration: other ("a while") Timing: intermittent, getting worse Modifying Factors: improves with: nothing Any recent injury?: No Locality of Occurance: Home Similar Symptoms Previously?: Yes Recently seen or treated by another doctor?: No - UPPER EXTREMITY PAIN/INJURY Extremities Pain Location: shoulder: bilateral Context / Method of Injury: reports: unknown Associated Symptoms: reports: denies symptoms Review of Systems - Adult - REVIEW OF SYSTEMS - ADULT Constitutional: reports: no symptoms reported Eyes: reports: no symptoms reported Ears, Nose, Mouth & Throat: reports: no symptoms reported Cardiovascular: reports: no symptoms reported Respiratory: reports: no symptoms reported Gastrointestinal: reports: no symptoms reported Genitourinary: reports: no symptoms reported Musculoskeletal: reports: other (bilateral shoulder pain). denies: back pain, neck pain Integumentary: reports: no symptoms reported Neurological: reports: no symptoms reported Psychiatric: reports: no symptoms reported Endocrine: reports: no symptoms reported Hematologic/Lymphatic: reports: no symptoms reported Allergic/Immunologic: reports: no symptoms reported All Other Systems: Reviewed and Negative Past History - Adult - PAST MEDICAL HISTORY-ADULT Review of Records: reports: Nursing Assessment Review, Medications Reviewed, Social history reviewed & non-contributory. Major Childhood Illnesses: reports: denies history Cardiovascular: reports: CAD, HTN, MO, pacemaker Respiratory: reports: asthma, COPD Gastrointestinal: reports: denies history Obstetrical/Gynecological: reports: denies history Genitourinary: reports: denies history Musculoskeletal: reports: chronic pain Neurological: reports: CVA Endocrine/Immune: reports: denies history Other Conditions: reports: denies history - PRIOR SURGERIES/PROCEDURES Surgical/Procedure History: reports: cardiac stent, pacemaker - IMMUNIZATION STATUS Childhood Immunizations: See Nurse Assessment Flu Vaccine: See Nurse Assessment - FAMILY HISTORY Family History: reviewed, not pertinent - SOCIAL HISTORY Smoking: cigarettes, greater than 1 pack/day Provider spent 3-5 mins advising pt. on dangers of tobacco.: Discussed manners to quit use, and f/u contacts for add'l counseling. Substance Use: denies Living Situation: family Physical Exam-Injury Related - Physical Exam-Injury Related Initial Vital Signs Reviewed: Yes General Appearance: alert, no apparent distress Head, Ears, Nose, Mouth & Throat: hearing deficit Respiratory: chest non-tender, lungs clear, normal breath sounds Cardiovascular: normal peripheral pulses, regular rate, rhythm, no JVD Abdominal Exam: normal bowel sounds, non tender, soft Extremity: non-tender, other (3 + pitting edema to bilateral lower extremities) Integumentary: normal color, warm/dry Neurologic: grossly normal, no motor/sensory deficits Psych/Mental Status: normal mood/affect, oriented x 3 Progress - PLAN OF CARE/RESULTS Progress/Plan/Lab Results: Vital Signs - 8 hr 10/27/18 09:48 Temperature 97.9 F Pulse Rate 76 Respiratory Rate 28 H Blood Pressure 111/056 O2 Sat by Pulse Oximetry 92 L Laboratory Results - last 24 hr 10/27/18 10/27/18 10/27/18 10:20 10:20 10:20 WBC 7.86 RBC 3.56 L Hgb 9.3 L Hct 30.2 L MCV 84.8 MCH 26.1 L MCHC 30.8 L RDW Std Deviation 16.5 H Plt Count 344 MPV 10.2 Immature Gran % (Auto) 0.4 Neut % (Auto) 78.8 H Lymph % (Auto) 12.1 L Rice % (Auto) 5.5 Eos % (Auto) 2.9 Baso % (Auto) 0.3 Immature Gran # (Auto) 0.03 Neut # (Auto) 6.20 Lymph # (Auto) 0.95 L Rice # (Auto) 0.43 Eos # (Auto) 0.23 Baso # (Auto) 0.02 Sodium 137 Potassium 3.5 Chloride 98 Carbon Dioxide 26 Anion Gap 14 BUN 48 H Creatinine 2.7 H Estimated GFR/1.73 m2 24 BUN/Creatinine Ratio 18 Glucose 124 H Calculated Osmolality 288 Calcium 8.7 L Total Bilirubin 1.00 AST 8 L ALT 5 L Alkaline Phosphatase 97 Troponin T 0.028 Total Protein 6.6 Albumin 3.2 L Globulin 3.0 Albumin/Globulin Ratio 1.0 Orders Category Date Time Status Admit - [facility] Routine AdmDCTranf 10/27/18 12:36 Active [place] Cath Insertion ORDERED Care 10/27/18 12:40 Active Intake and Output-Strict ORDERED Care 10/27/18 12:40 Active Z-Document. for Tele Applied ORDERED Care 10/27/18 12:38 Active CHEST-PORTABLE [RAD] Stat Exams 10/27/18 10:02 Completed CBC WITH DIFF [HEME] Stat Lab 10/27/18 10:20 Completed COMPREHENSIVE METABOLIC PANEL [CHEM] Stat Lab 10/27/18 10:20 Completed LACTATE, PLASMA [CHEM] Timed Lab 10/27/18 12:40 Uncollected TROPONIN T Stat Lab 10/27/18 10:20 Completed CefTRIAXONE [Rocephin] 1 gm Med 10/27/18 12:45 Ordered 0.9% Sodium Chloride Inj [Ns] 50 ml IV Q24H Dobutamine 250 mg/D5w Med 10/27/18 12:45 Ordered 250 mg in 250 ml IV As Directed mls/hr Telemetry [OM.EQ] Routine Oth 10/27/18 12:36 Active EKG [EKG] Routine Ther 10/27/18 Draft Transfer/Admit Order [TRANSFER] Routine Transfer 10/27/18 12:38 Ordered Result Diagrams: 10/27/18 10:20 10/27/18 10:20 - EKG 1 Time of EKG reading by physician:: 09:52 EKG Read and Signed by:: Yolanda Valadez EKG Interpretation (*Must complete 3 of following elements*): Abnormal (rhythm - sinus rhythm with occasional ventricular-paced complexes and with occasional premature ventricular complexes. possible lateral infarct, age undetermined; T wave abnormality, consider anterior ischemia) Rate: 84 [place]: left Comments: nonspecific intraventricular block; - XRAY 1 XRAY Study: Chest Impression: See EMR Report (CHEST-PORTABLE - 10/27/2018 INDICATION: shortness of breath COMPARISON: 08/03/2018 FINDINGS: Stable biventricular pacemaker. There is cardiomegaly and pulmonary vascular congestion that has worsened since prior. There is some fine interstitial infiltrate suggesting pulmonary edema. There is also dense focal infiltrate in the right lower lobe. IMPRESSION: Cardiomegaly with pulmonary edema plus or minus pneumonia. Electronically signed by Israel Zapata 10/27/2018 10:34 AM 10/27/18 1034 Interpreting Physician: Israel Zapata MD Dictated Date/Time: 10/27/18 1032 cc: Yolanda Valadez MD;) - CONSULTS/PCP/HOSPITALIST Notification Time Discussed: 12:45 Consult Disposition: Admit Departure - Departure Date of Disposition Decision: 10/27/18 Time of Disposition Decision: 12:42 DIAGNOSIS: CHF exacerbation, Hypotension, Acute renal failure Disposition: ADMITTED INPATIENT 09 Certified Medical Emergency: Emergent Condition: Good - Critical Care Note This patient required my direct & personal management of CC.: Yes Total Time (mins): 35 Critical Care Statement: This patient required my direct personal management to treat or rule out processes, the absence of which, could potentiallly result in sudden, clinically significant life or limb threatening deterioration. Attestation - Physician/ JAVIER Attestation Patient care was provided by Advanced Practice Provider:: No The physician spent face to face time with patient:: Yes Advanced Practice Provider documentation review:: Supervising physician onsite and consulted in the evaluation and care of this patient. The physician did have a face to face encounter with the patient. This chart was documented by the indicated scribe, (Jennifer Hathaway Scribe) and accurately reflects the services I performed and decisions made by me, Yolanda Valadez MD, as attested by the provider's signature.
[2018-10-27] MEDS: DOBUTAMINE 500/D5W 500 MG/250 ML IV.SOLN IV SCH (13:03)
[2018-10-27] MEDS ORDERED: LASIX 100 MG in NS 90 ML IV SCH (14:00)
[2018-10-27] MEDS ORDERED: NORCO-7.5 PO PRN (14:41)
[2018-10-27] MEDS: MAXIPIME 1 GM/D5W 1 GM/50 ML IVPB IV SCH (18:08)
--- NOTE | 2018-10-27 19:19 | HISTORY AND PHYSICAL ---
CHIEF COMPLAINT: Low blood pressure, dizziness. HISTORY OF PRESENT ILLNESS: This is a 68-year-old male, with significant heart failure who presents with shortness of breath. He actually came in with shoulder pain and some chest discomfort, but no jorge chest pain. He states he knows when his blood pressure gets low. It was low as an outpatient. He said he checked it himself, although he did not document how low it got, but he came in for evaluation. He was felt to be in heart failure, but concurrently hypotensive and he was admitted for further treatment. He has a complicated CHF history. He has a biventricular pacer. I think his EF was around 35 to 40 percent and he was admitted for CHF exacerbation, but with concurrent hypotension, which may indeed be cardiogenic shock. PAST MEDICAL HISTORY: 1. CAD. 2. Hypertension. 3. COPD. 4. Atrial fibrillation. 5. CVA. 6. Chronic constipation associated with chronic narcotic use. PAST SURGICAL HISTORY: He has had PCI. He has had pacemaker placement. SOCIAL HISTORY: He has got about a 50 pack year history of smoking. No alcohol. Lives with family. FAMILY HISTORY: No CAD. No cancer. ALLERGIES: To Levaquin, meperidine, morphine and gabapentin. MEDICATION LIST: He is on Eliquis 5 b.i.d., aspirin 81 daily, Colora 7.5 b.i.d., Prilosec 40 daily, pravastatin 40 daily, sotalol 80 b.i.d., Spiriva daily, spironolactone 12.5 daily, Symbicort 10.2 g q.12, Toprol-XL 25 daily, colchicine 0.6 b.i.d., Lasix 40 b.i.d. and Pletal 100 b.i.d. REVIEW OF SYSTEMS: Otherwise negative times a 10 point review of systems. PHYSICAL EXAM: VITAL SIGNS: Blood pressure currently 92/48, heart rate of 80, respiratory rate 18, temperature 98.4, 92% on room air. HEENT: Generally, eye exam, pupils equal, round, reactive to light. Extraocular movements were intact. Ear, nose, throat exam is moist mucous membranes. NECK: Exam was supple. CARDIOVASCULAR: Regular rate and rhythm. PULMONARY: Bilateral breath sounds. Diminished at the bases. GI: Was soft, nontender, nondistended. Bowel sounds are positive. LYMPHATIC EXAM: I would say he had 2+ pitting edema up to 2/3 above his [place]. He had rales on exam. LABORATORY DATA: Creatinine is up to 2.7. His hemoglobin and hematocrit is 9 and 30. Report shows chest x-ray shows pulmonary edema, right pleural effusion and then possibly pneumonia, and then he has got interstitial edema. ASSESSMENT: A 68-year-old male presenting with congestive heart failure exacerbation, acute systolic in the setting of low blood pressure, not quite shock, but at that point. 1. Acute congestive heart failure exacerbation. We will continue Lasix. I have added dobutamine just because he is hypotensive, and I think there are some issues with concern over possible shock, so we will continue to follow that. 2. We will get a Cardiology opinion. He has had a recent echo. I am going to hold on anything else for the time being and we will follow. 3. Possible right lower lobe pneumonia. We will institute cefepime and monitor. Repeat chest x- ray tomorrow. 4. Acute on chronic renal failure, possibly associated with diuretics. At this point, I am going to continue diuresis, because he does seem volume overloaded. If clinically deteriorates, it may be prudent to get a Nephrology opinion. 5. Atrial fibrillation. He is overall rate controlled. We will continue sotalol and Eliquis. I have held his Toprol because he is on dobutamine. 6. Chronic obstructive pulmonary disease. Appears to be stable. We will continue to monitor. 7. At this point he is a Full Code. When I did discuss code status with him, he was really uncertain about how we would want to proceed, but since he did not deny that, he is actively a Full Code. cc: Lamberto Mina MD
[2018-10-27] MEDS: LASIX 100 MG in NS 90 ML IV SCH (19:54)
[2018-10-27] MEDS: SYMBICORT 160/4.5 MICROGM INHALER INH SCH (20:00)
[2018-10-27] MEDS: BETAPACE PO SCH (20:41)
[2018-10-27] MEDS: PRAVACHOL PO SCH (20:41)
[2018-10-27] MEDS: ELIQUIS PO SCH (20:42)
[2018-10-27] MEDS: NORCO-10 PO PRN (20:42)
[2018-10-27] MEDS ORDERED: PLETAL PO SCH (21:00)
--- NOTE | 2018-10-27 21:13 | CARDIOLOGY CONSULTATION ---
DATE: 10/27/2018 CHIEF COMPLAINT ON PRESENTATION: Shortness of breath and lower extremity edema. HISTORY OF PRESENT ILLNESS: Mr. Curtis is a 68-year-old white male with a history of an ischemic cardiomyopathy normally followed with Dr. Tsai. Last visit with him was in August 2018. The patient has had frequent hospitalizations, in addition has been on dobutamine in the past. He reports compliance with his medications at home however it sounds like he has a significant level of fluid and sodium indiscretion. He has not had any chest pain, he does have some orthopnea. He has paroxysmal atrial fibrillation. PAST MEDICAL HISTORY: 1. Significant for coronary disease . 2. Ischemic cardiomyopathy. Last ejection fraction documented at 15 to 20 percent by echocardiogram in November 2017. 3. Atrial fibrillation status post AV node ablation in 2016. 4. Hypertension. 5. Peripheral vascular disease with history of femoral-femoral [place] [address] Morales. 6. Coronary artery disease with history of left carotid endarterectomy, right internal carotid artery was occluded. 7. Renal artery stenosis. 8. COPD. 9. Hyperlipidemia. SOCIAL HISTORY: Disabled, continues to smoke, he does drink occasional alcohol. FAMILY HISTORY: Significant for hypertension. REVIEW OF SYSTEMS: A 10 system review of systems is negative except for those mentioned in HPI. PHYSICAL EXAMINATION: Vital Signs: He is afebrile, heart rate is 80, his blood pressure is 92/48. General: In no acute distress. HEENT: Oropharynx is moist, very poor dentition. Eye examination shows pink conjunctivae. White sclerae. Neck: Shows no obvious thyromegaly or thyroid tenderness Cardiovascular: He sounds to be in a regular rate and rhythm. I do not hear any obvious murmurs. He has no S3. He has 1 to 2+ bilateral lower extremity edema and warm and well perfused lower extremities. He is on dobutamine. Chest: Has reduced breath sounds in the bilateral bases. No increased work of breathing. Abdomen: Soft, nontender, nondistended. He has no obvious organomegaly. Skin: Warm and dry throughout without any rashes. Neurological: Moving all extremities well. PERTINENT DATA: His EKG checked on the at 9:52 shows what appears to be a ventricular paced rhythm. He had a chest x-ray demonstrated cardiomegaly with pulmonary edema plus or minus a possible pneumonia. His lab data shows a white count 7.8, his hematocrit is 30, his platelet count is 344,000. His sodium is 137, potassium 3.5, his BUN is 48, creatinine is 2.7 which is up from 1.5 in July. His proBNP is currently pending. ASSESSMENT: Mr. Curtis is a 68-year-old gentleman with an ischemic cardiomyopathy. PLAN: We will continue on current dobutamine drip. I will increase his Lasix to 4 mg an hour. For the time being will continue him on the sotalol as well as the apixaban. We will try to escalate cardiac medications in the near future including possibly addition of hydralazine and ISDN versus possibly an [place] inhibitor. He does have current renal insufficiency issues which hopefully will improve with better profusion from the dobutamine. cc: MD Lamberto Fermin MD MTDD
[2018-10-28] MEDS: NORCO-10 PO PRN ×4 (03:08→21:21)
[2018-10-28] MEDS: XOPENEX NEB INH PRN ×2 (05:11→08:04)
[2018-10-28] MEDS: MAXIPIME 1 GM/D5W 1 GM/50 ML IVPB IV SCH ×2 (05:47→18:00)
[2018-10-28] MEDS: PLETAL PO SCH ×2 (06:09→18:00)
[2018-10-28] MEDS: PRILOSEC PO SCH (06:09)
[2018-10-28 06:32] LABS: BASO# 0.01 X1000 (0.0-0.2); BASO% 0.1 % (0.0-0.8); EOS# 0.13 X1000 (0.0-0.7); EOS% 1.8 % (0.0-10.0); HEMATOCRIT 28.1 % (42.0-52.0); HEMOGLOBIN 8.5 g/dL (14.0-18.0); IMM GRAN# 0.02 X1000 (0.0-0.04); IMM GRAN% 0.3 % (0.0-0.5); LYMPH# 0.71 X1000 (1.2-3.4); MCH 25.4 PG (27-31); MCHC 30.2 g/dL (33-37); MCV 83.9 FL (81-99); MONO% 5.6 % (1.7-9.3); MPV 9.6 FL (7.4-10.4); NEUT# 5.82 X1000 (1.4-6.5); NEUT% 82.2 % (42.2-75.2); PLT 307 X1000 (130-400); RBC 3.35 XMIL (4.7-6.1); RDW 16.1 % (11.5-14.5); WBC 7.09 X1000 (4.8-10.8)
[2018-10-28 07:00] LABS: CREATININE 2.5 mg/dL (0.7-1.2); POTASSIUM 4.1 mmol/L (3.5-5.1)
[2018-10-28 07:04] LABS: CALCIUM 8.8 mg/dL (8.8-10.2); MAGNESIUM 2.2 mg/dL (1.5-2.7)
--- NOTE | 2018-10-28 07:17 | Diag Imaging Result Doc PS360 ---
CHEST-PORTABLE - 10/28/2018 INDICATION: dyspnea COMPARISON: 10/27/2018 FINDINGS: Stable pacemaker. Stable cardiomegaly and pulmonary vascular congestion. There is improvement in the mild pulmonary edema. Stable infiltrate throughout the right lung base. IMPRESSION: Improvement in the mild pulmonary edema. Infiltrate/pneumonia throughout the right lung base. Electronically signed by Israel Zapata 10/28/2018 7:15 AM
[2018-10-28] MEDS: SYMBICORT 160/4.5 MICROGM INHALER INH SCH ×2 (08:04→21:40)
[2018-10-28] MEDS: SPIRIVA INH SCH (08:04)
[2018-10-28] MEDS ORDERED: TOPROL XL PO SCH (09:00)
[2018-10-28] MEDS: ELIQUIS PO SCH ×2 (09:08→21:21)
[2018-10-28] MEDS: ASPIRIN EC PO SCH (09:08)
[2018-10-28] MEDS: BETAPACE PO SCH ×2 (09:08→21:21)
[2018-10-28] MEDS ORDERED: NEO-SYNEPHRINE 50 MG in NS 250 ML IV SCH (10:45)
[2018-10-28] MEDS: NICODERM PATCH TD PRN (11:25)
[2018-10-28] MEDS: LASIX 100 MG in NS 90 ML IV SCH ×2 (15:10→18:06)
[2018-10-28] MEDS: XOPENEX NEB INH SCH ×2 (15:22→21:40)
[2018-10-28] MEDS: PRAVACHOL PO SCH (21:21)
[2018-10-28] MEDS ORDERED: COLCRYS PO ONE (22:44)
[2018-10-29] MEDS: NORCO-10 PO PRN ×3 (03:47→21:22)
[2018-10-29] MEDS: XOPENEX NEB INH SCH ×4 (04:20→22:23)
[2018-10-29] MEDS: MAXIPIME 1 GM/D5W 1 GM/50 ML IVPB IV SCH ×2 (05:57→18:30)
[2018-10-29] MEDS: PLETAL PO SCH ×2 (05:58→18:30)
[2018-10-29] MEDS: PRILOSEC PO SCH (05:59)
[2018-10-29 06:20] LABS: BASO# 0.01 X1000 (0.0-0.2); BASO% 0.1 % (0.0-0.8); EOS# 0.22 X1000 (0.0-0.7); EOS% 2.5 % (0.0-10.0); HEMATOCRIT 29.5 % (42.0-52.0); HEMOGLOBIN 8.9 g/dL (14.0-18.0); IMM GRAN# 0.04 X1000 (0.0-0.04); IMM GRAN% 0.4 % (0.0-0.5); LYMPH# 0.34 X1000 (1.2-3.4); LYMPH% 3.8 % (20.5-51.1); MCH 25.3 PG (27-31); MCHC 30.2 g/dL (33-37); MCV 83.8 FL (81-99); MONO# 0.46 X1000 (0.11-0.59); MONO% 5.1 % (1.7-9.3); MPV 9.1 FL (7.4-10.4); NEUT# 7.87 X1000 (1.4-6.5); NEUT% 88.1 % (42.2-75.2); PLT 282 X1000 (130-400); RBC 3.52 XMIL (4.7-6.1); RDW 16.1 % (11.5-14.5); WBC 8.94 X1000 (4.8-10.8)
[2018-10-29 06:40] LABS: CREATININE 2.3 mg/dL (0.7-1.2); MAGNESIUM 2.2 mg/dL (1.5-2.7); POTASSIUM 3.7 mmol/L (3.5-5.1)
--- NOTE | 2018-10-29 07:12 | Diag Imaging Result Doc PS360 ---
EXAM: CHEST-PORTABLE - 10/29/2018 HISTORY: dyspnea TECHNIQUE: Portable chest COMPARISON: 10/28/2018 FINDINGS: Heart size appears within normal limits and mildly decreased compared to prior. There is transvenous cardiac pacemaker again seen. There has been some apparent decrease in lower lung infiltrates/edema on the right, although this may be partially secured by the overlying pacemaker device. There are no other substantial interval changes identified. IMPRESSION: Some apparent decrease in right lower lung infiltrate/edema. Electronically signed by Cayetano Lakhani 10/29/2018 7:10 AM
[2018-10-29] MEDS: DOBUTAMINE 500/D5W 500 MG/250 ML IV.SOLN IV SCH (07:55)
[2018-10-29] MEDS: ASPIRIN EC PO SCH (08:07)
[2018-10-29] MEDS: BETAPACE PO SCH ×2 (08:07→21:22)
[2018-10-29] MEDS: ELIQUIS PO SCH ×2 (08:09→21:22)
[2018-10-29] MEDS: NICODERM PATCH TD PRN (08:09)
[2018-10-29] MEDS: COLCRYS PO SCH (08:14)
[2018-10-29] MEDS ORDERED: BENADRYL PO PRN (08:23)
[2018-10-29 08:31] LABS: ANISOCYTOSIS 1+; LYMPHS 7 % (21-51); MONO 5 % (1-9); SEGS 88 % (42-75)
[2018-10-29] MEDS: SYMBICORT 160/4.5 MICROGM INHALER INH SCH ×2 (08:56→22:22)
[2018-10-29] MEDS: SPIRIVA INH SCH (08:56)
[2018-10-29] MEDS: ATARAX PO PRN (10:45)
[2018-10-29] MEDS: XOPENEX NEB INH PRN (14:29)
[2018-10-29] MEDS: LASIX 100 MG in NS 90 ML IV SCH (18:53)
[2018-10-29] MEDS: PRAVACHOL PO SCH (21:22)
[2018-10-30] MEDS: ATARAX PO PRN ×3 (02:38→20:27)
[2018-10-30] MEDS: NORCO-10 PO PRN ×4 (02:38→20:26)
[2018-10-30] MEDS: XOPENEX NEB INH SCH ×4 (03:08→22:41)
[2018-10-30] MEDS: MAXIPIME 1 GM/D5W 1 GM/50 ML IVPB IV SCH ×2 (06:09→17:54)
[2018-10-30] MEDS: PLETAL PO SCH ×2 (06:09→17:54)
[2018-10-30] MEDS: PRILOSEC PO SCH (06:09)
[2018-10-30 06:33] LABS: BASO# 0.02 X1000 (0.0-0.2); BASO% 0.2 % (0.0-0.8); EOS% 3.4 % (0.0-10.0); HEMATOCRIT 32.4 % (42.0-52.0); HEMOGLOBIN 9.7 g/dL (14.0-18.0); IMM GRAN# 0.03 X1000 (0.0-0.04); IMM GRAN% 0.3 % (0.0-0.5); LYMPH# 0.56 X1000 (1.2-3.4); LYMPH% 6.3 % (20.5-51.1); MCH 25.2 PG (27-31); MCHC 29.9 g/dL (33-37); MCV 84.2 FL (81-99); MONO# 0.65 X1000 (0.11-0.59); MONO% 7.3 % (1.7-9.3); MPV 9.3 FL (7.4-10.4); NEUT# 7.34 X1000 (1.4-6.5); NEUT% 82.5 % (42.2-75.2); PLT 328 X1000 (130-400); RBC 3.85 XMIL (4.7-6.1); RDW 16.2 % (11.5-14.5)
[2018-10-30 07:24] LABS: CALCIUM 8.9 mg/dL (8.8-10.2); CREATININE 2.1 mg/dL (0.7-1.2); MAGNESIUM 2.3 mg/dL (1.5-2.7); POTASSIUM 3.8 mmol/L (3.5-5.1)
[2018-10-30] MEDS: SYMBICORT 160/4.5 MICROGM INHALER INH SCH ×2 (08:29→22:41)
[2018-10-30] MEDS: SPIRIVA INH SCH (08:29)
[2018-10-30] MEDS: ELIQUIS PO SCH ×2 (08:53→20:27)
[2018-10-30] MEDS: ASPIRIN EC PO SCH (08:53)
[2018-10-30] MEDS: LASIX IV SCH ×2 (08:54→20:29)
[2018-10-30] MEDS: COLCRYS PO SCH (08:54)
[2018-10-30] MEDS: BETAPACE PO SCH ×2 (08:54→20:26)
--- NOTE | 2018-10-30 13:02 | PROGRESS NOTE ---
DATE: 10/30/2018 SUBJECTIVE: Patient denies having any acute complaints and feels well this morning. OBJECTIVE: Vital Signs: Temperature 98.6 degrees, pulse 82 per minute, respiratory rate 16 per minute, blood pressure 104/50, and pulse oximetry 99% on room air. General: Patient is alert and oriented x3. He does not appear to be in any acute distress. Cardiovascular: First and second heart sounds are audible without any murmurs. Irregularly irregular rhythm is noted. Respiratory: Bilateral lung air entry is slightly decreased, but there are no rales or rhonchi present on auscultation. Gastrointestinal: Abdomen is benign. DIAGNOSTIC DATA: CBC shows hemoglobin of 9.7 and hematocrit 32.4. Rest of the CBC is nondiagnostic. In comparison, his hemoglobin and hematocrit were 8.9 and 29.5 yesterday. Chemistry shows a BUN of 39 and creatinine 2.1. In comparison, his BUN and creatinine were 45 and 2.3 respectively yesterday. [place] [address] on 10/28/2018. IMPRESSION: 1. Acute on chronic systolic congestive heart failure secondary to ischemic cardiomyopathy. 2. Chronic atrial fibrillation. 3. Pneumonia. 4. Acute kidney injury on chronic kidney disease. PLAN: The patient will be continued to be kept in the intensive care unit. He will be continued on furosemide 40 mg IV q.12 hours, and will be kept on Eliquis 5 mg twice daily for thromboembolism prophylaxis. We are going to keep him on cefepime intravenously for the possibility of having pneumonia. I am going to have a repeat chest x-ray in the morning tomorrow for reevaluation of his pneumonia. He will be kept on bronchodilators via nebulization. We are also going to keep him on routine home medications including sotalol 80 mg twice daily. He is currently being followed by Cardiology. Further recommendations will be given as per hospital course. cc: Veronica Schroeder MD
[2018-10-30] MEDS: NICODERM PATCH TD PRN (17:54)
[2018-10-30] MEDS: XOPENEX NEB INH PRN (18:34)
[2018-10-30] MEDS: PRAVACHOL PO SCH (20:26)
[2018-10-31] MEDS: NORCO-10 PO PRN ×4 (03:10→22:54)
[2018-10-31] MEDS: XOPENEX NEB INH SCH ×4 (03:12→22:48)
[2018-10-31] MEDS: PLETAL PO SCH ×2 (05:45→17:50)
[2018-10-31] MEDS: MAXIPIME 1 GM/D5W 1 GM/50 ML IVPB IV SCH ×2 (05:50→17:50)
[2018-10-31] MEDS: ATARAX PO PRN (05:50)
[2018-10-31 06:09] LABS: BASO# 0.02 X1000 (0.0-0.2); BASO% 0.2 % (0.0-0.8); EOS# 0.32 X1000 (0.0-0.7); EOS% 3.5 % (0.0-10.0); HEMATOCRIT 32.2 % (42.0-52.0); HEMOGLOBIN 9.6 g/dL (14.0-18.0); IMM GRAN# 0.03 X1000 (0.0-0.04); IMM GRAN% 0.3 % (0.0-0.5); LYMPH# 0.61 X1000 (1.2-3.4); LYMPH% 6.6 % (20.5-51.1); MCH 25.2 PG (27-31); MCHC 29.8 g/dL (33-37); MCV 84.5 FL (81-99); MONO% 6.5 % (1.7-9.3); MPV 9.5 FL (7.4-10.4); NEUT# 7.69 X1000 (1.4-6.5); NEUT% 82.9 % (42.2-75.2); PLT 342 X1000 (130-400); RBC 3.81 XMIL (4.7-6.1); RDW 16.5 % (11.5-14.5); WBC 9.27 X1000 (4.8-10.8)
[2018-10-31] MEDS: PRILOSEC PO SCH (06:16)
[2018-10-31 06:33] LABS: CALCIUM 9.1 mg/dL (8.8-10.2); CREATININE 2.2 mg/dL (0.7-1.2); POTASSIUM 3.6 mmol/L (3.5-5.1)
--- NOTE | 2018-10-31 08:02 | Diag Imaging Result Doc PS360 ---
CHEST-PORTABLE - 10/31/2018 INDICATION: Pneumonia COMPARISON: 10/29/2018 FINDINGS: Stable pacemaker. Heart size remains normal. There is slight improvement in the ill-defined interstitial infiltrates bilaterally compatible with edema. No large pleural effusion. IMPRESSION: Slight improvement in the ill-defined interstitial infiltrates. Electronically signed by Israel Zapata 10/31/2018 7:59 AM
[2018-10-31] MEDS: ELIQUIS PO SCH ×2 (08:37→20:29)
[2018-10-31] MEDS: BETAPACE PO SCH ×2 (08:37→20:28)
[2018-10-31] MEDS: ASPIRIN EC PO SCH (08:37)
[2018-10-31] MEDS: LASIX IV SCH (08:37)
[2018-10-31] MEDS: COLCRYS PO SCH (08:37)
[2018-10-31] MEDS: SPIRIVA INH SCH (11:04)
[2018-10-31] MEDS: SYMBICORT 160/4.5 MICROGM INHALER INH SCH ×2 (11:05→20:30)
[2018-10-31] MEDS: ZOFRAN IV PRN (12:25)
--- NOTE | 2018-10-31 12:43 | PROGRESS NOTE ---
DATE: 10/31/2018 SUBJECTIVE: The patient denies having any acute complaints this morning and feels well. OBJECTIVE: Vital Signs: Temperature 98.1 degrees, pulse 105 per minute, respiratory rate 18 per minute, blood pressure 106/48, pulse oximetry 100% on 2 L of oxygen via nasal cannula. General: Patient is alert and oriented x3. He does not appear to be in any acute distress. Cardiovascular System: First and second heart sounds are audible without any murmurs or gallops. Respiratory System: Bilateral lung air entry is moderately decreased, but there are no rales or rhonchi present on auscultation. Gastrointestinal System: Abdomen is benign. DIAGNOSTIC DATA: CBC shows hemoglobin of 9.6 and hematocrit 32.2. In comparison, his hemoglobin and hematocrit were 9.7 and 32.4 yesterday. Chemistry shows a BUN of 39 and creatinine 2.2. Rest of the basic metabolic panel is nondiagnostic. In comparison, his BUN and creatinine were 39 and 2.1 respectively yesterday. IMPRESSION: 1. Acute on chronic systolic congestive heart failure secondary to ischemic cardiomyopathy. 2. Chronic atrial fibrillation. 3. Pneumonia that is getting better. 4. Stage III chronic kidney disease that appears to be at baseline now. PLAN: The patient will continue with furosemide IV, but I am going to decrease that dose from 40 mg twice daily to once daily. He will be kept on cefepime 1 g IV q. 12 hours for his pneumonia, and we will continue the rest of his routine medications. I am going to transfer him from intensive care unit to the regular floor, and repeat CBC and BMP, along with a chest x-ray, tomorrow morning. He can probably be discharged home tomorrow if continues to improve. cc: Veronica Schroeder MD
[2018-10-31] MEDS: PRAVACHOL PO SCH (20:29)
[2018-10-31] MEDS: NICODERM PATCH TD PRN (22:54)
[2018-11-01] MEDS: XOPENEX NEB INH SCH ×4 (03:28→21:52)
[2018-11-01] MEDS: ZOFRAN IV PRN ×3 (05:12→14:30)
[2018-11-01] MEDS: MAXIPIME 1 GM/D5W 1 GM/50 ML IVPB IV SCH ×2 (05:13→17:56)
[2018-11-01] MEDS: NORCO-10 PO PRN ×3 (05:13→21:31)
[2018-11-01] MEDS: PLETAL PO SCH ×2 (05:13→17:57)
[2018-11-01 06:02] LABS: BASO# 0.07 X1000 (0.0-0.2); BASO% 0.6 % (0.0-0.8); EOS# 0.38 X1000 (0.0-0.7); EOS% 3.1 % (0.0-10.0); HEMOGLOBIN 9.8 g/dL (14.0-18.0); IMM GRAN# 0.04 X1000 (0.0-0.04); IMM GRAN% 0.3 % (0.0-0.5); LYMPH# 0.83 X1000 (1.2-3.4); LYMPH% 6.8 % (20.5-51.1); MCH 25.2 PG (27-31); MCHC 29.7 g/dL (33-37); MCV 84.8 FL (81-99); MONO# 0.88 X1000 (0.11-0.59); MONO% 7.2 % (1.7-9.3); MPV 9.2 FL (7.4-10.4); NEUT# 10.02 X1000 (1.4-6.5); PLT 364 X1000 (130-400); RBC 3.89 XMIL (4.7-6.1); RDW 16.5 % (11.5-14.5); WBC 12.22 X1000 (4.8-10.8)
[2018-11-01] MEDS: PRILOSEC PO SCH (06:15)
[2018-11-01 06:27] LABS: CALCIUM 9.6 mg/dL (8.8-10.2); CREATININE 2.5 mg/dL (0.7-1.2); POTASSIUM 4.4 mmol/L (3.5-5.1)
--- NOTE | 2018-11-01 08:11 | Diag Imaging Result Doc PS360 ---
CHEST-PORTABLE - 11/01/2018 INDICATION: Pneumonia COMPARISON: 10/31/2018 FINDINGS: Stable right-sided pacemaker. Stable cardiomegaly and pulmonary vascular congestion. There is worsening fine interstitial infiltrate bilaterally most compatible with pulmonary edema. There may be trace pleural effusions. IMPRESSION: Worsening diffuse interstitial pulmonary edema. Electronically signed by Israel Zapata 11/01/2018 8:09 AM
[2018-11-01] MEDS ORDERED: VANCOMYCIN IV PER PHARMACY MISC SCH (08:30)
[2018-11-01] MEDS: SPIRIVA INH SCH (09:02)
[2018-11-01] MEDS: SYMBICORT 160/4.5 MICROGM INHALER INH SCH ×2 (09:02→21:52)
[2018-11-01] MEDS: COLCRYS PO SCH (09:16)
[2018-11-01] MEDS: ELIQUIS PO SCH ×2 (09:16→21:29)
[2018-11-01] MEDS: BETAPACE PO SCH ×2 (09:16→21:29)
[2018-11-01] MEDS: LASIX IV SCH (09:16)
[2018-11-01] MEDS: ASPIRIN EC PO SCH (09:17)
[2018-11-01] MEDS ORDERED: VANCOMYCIN 1,800 MG in NS 250 ML IV ONE (09:30)
--- NOTE | 2018-11-01 10:59 | PROGRESS NOTE ---
DATE: 11/01/2018 SUBJECTIVE: The patient does not feel very well this morning and has been having some cough. OBJECTIVE: Vital signs: Temperature 97.5 degrees, pulse 89 per minute, respiratory rate 20 per minute, blood pressure 104/52, pulse oximetry 97% on room air. General: Patient is alert and oriented x3. He does not appear to be in any acute distress, although he does look to be somewhat weak. Cardiovascular system: First and second heart sounds are audible without any murmurs or gallops. Respiratory system: Bilateral lung air entry is moderately decreased with few scattered bilateral rales present on auscultation. Abdomen: Benign. DIAGNOSTIC DATA: CBC shows WBC count of 12.22. In comparison his white blood cell count was 9.27 yesterday. His hemoglobin and hematocrit have remained stable, although he does have anemia with hemoglobin of 9.8 and hematocrit 33. Basic metabolic panel done this morning showed BUN of 46 and creatinine 2.5. In comparison, his BUN and creatinine were 39 and 2.2 respectively yesterday. IMPRESSION: 1. Acute on chronic systolic congestive heart failure secondary to ischemic cardiomyopathy. 2. Pneumonia. 3. Chronic atrial fibrillation. 4. Stage 3 chronic kidney disease that appears to be at baseline. PLAN: He will be continued on cefepime intravenously for his pneumonia, but I am going to add vancomycin because of worsening symptoms. He has been on furosemide IV 40 mg daily, which will be continued as well. His chronic atrial fibrillation and chronic kidney disease are currently stable and we are going to monitor those for now. He has been taking sotalol 80 mg twice daily for his chronic atrial fibrillation and has been on Eliquis 5 mg twice daily for thromboembolism prophylaxis. We will repeat labs and chest x-ray tomorrow morning. Further recommendations will be given as per hospital course. cc: Veronica Schroeder MD
[2018-11-01] MEDS ORDERED: SODIUM CHLORIDE 0.9% INJ PRN (17:42)
[2018-11-01] MEDS ORDERED: PHENERGAN IV PRN (17:42)
--- NOTE | 2018-11-01 19:36 | Diag Imaging Result Doc PS360 ---
KUB ABDOMEN - 11/01/2018 INDICATION: abdominal pain/nausea COMPARISON: 01/13/2017 FINDINGS: There are vascular stents in the abdominal aorta and iliac arteries. There are surgical clips over the inguinal regions bilaterally. There is a nonobstructive bowel gas pattern. No free air or abnormal calcifications. IMPRESSION: No acute disease. Electronically signed by Israel Zapata 11/01/2018 7:34 PM
[2018-11-01] MEDS: PRAVACHOL PO SCH (21:29)
[2018-11-02] MEDS: XOPENEX NEB INH SCH ×4 (03:18→21:19)
[2018-11-02] MEDS: NORCO-10 PO PRN ×3 (03:33→19:37)
[2018-11-02] MEDS: MAXIPIME 1 GM/D5W 1 GM/50 ML IVPB IV SCH ×2 (06:30→17:51)
[2018-11-02] MEDS: PRILOSEC PO SCH (06:50)
[2018-11-02] MEDS: PLETAL PO SCH ×2 (06:51→17:47)
[2018-11-02 06:53] LABS: CALCIUM 8.8 mg/dL (8.8-10.2); CREATININE 2.8 mg/dL (0.7-1.2); POTASSIUM 4.4 mmol/L (3.5-5.1)
[2018-11-02 06:56] LABS: BASO# 0.07 X1000 (0.0-0.2); BASO% 0.7 % (0.0-0.8); EOS# 0.35 X1000 (0.0-0.7); EOS% 3.4 % (0.0-10.0); HEMATOCRIT 31.2 % (42.0-52.0); HEMOGLOBIN 9.1 g/dL (14.0-18.0); IMM GRAN# 0.03 X1000 (0.0-0.04); IMM GRAN% 0.3 % (0.0-0.5); LYMPH# 0.96 X1000 (1.2-3.4); LYMPH% 9.4 % (20.5-51.1); MCH 24.9 PG (27-31); MCHC 29.2 g/dL (33-37); MCV 85.5 FL (81-99); MONO# 0.75 X1000 (0.11-0.59); MONO% 7.3 % (1.7-9.3); MPV 9.5 FL (7.4-10.4); NEUT# 8.05 X1000 (1.4-6.5); NEUT% 78.9 % (42.2-75.2); PLT 342 X1000 (130-400); RBC 3.65 XMIL (4.7-6.1); RDW 16.7 % (11.5-14.5); WBC 10.21 X1000 (4.8-10.8)
--- NOTE | 2018-11-02 07:43 | Diag Imaging Result Doc PS360 ---
EXAM: CHEST-PORTABLE HISTORY: Pneumonia TECHNIQUE: Portable chest single view COMPARISON: 11/01/2018 FINDINGS: The lungs are well expanded. The pulmonary edema is less pronounced. Heart is not enlarged. The small pleural effusions. The patient has a right-sided pacemaker. IMPRESSION: Interval improvement with decreased pulmonary edema Electronically signed by Jacob Scott 11/02/2018 7:40 AM
[2018-11-02] MEDS ORDERED: COLCRYS PO SCH (09:00)
[2018-11-02 10:12] LABS: ANISOCYTOSIS 1+; EOS 2 % (1-10); LYMPHS 16 % (21-51); MONO 8 % (1-9); SEGS 74 % (42-75)
[2018-11-02] MEDS: SYMBICORT 160/4.5 MICROGM INHALER INH SCH ×2 (10:35→21:19)
[2018-11-02] MEDS: SPIRIVA INH SCH (10:35)
[2018-11-02] MEDS: ASPIRIN EC PO SCH (10:47)
[2018-11-02] MEDS: ELIQUIS PO SCH ×2 (10:48→21:52)
[2018-11-02] MEDS: BETAPACE PO SCH ×2 (10:48→21:52)
[2018-11-02] MEDS: LASIX IV SCH (10:48)
--- NOTE | 2018-11-02 15:22 | PROGRESS NOTE ---
DATE: 11/02/2018 SUBJECTIVE: Patient notes that he is feeling a little bit better. Still having increased cough, congestion, still having some increased work of breathing. OBJECTIVE: Vital signs: Temperature 97.9, pulse 82, respiratory 20, BP 99/51. General: Patient is awake, alert. He is currently in mild respiratory distress. He is lying in the bed. HEENT: Normocephalic. Neck: Supple. Cardiovascular: Regular rate. Chest: Decreased but equal breath sounds. No current crackles, no wheezing. Abdomen: Soft, nondistended. Extremities: Trace edema. Neurologic: No changes. ASSESSMENT: 1. Anemia of chronic disease. Hemoglobin 9, hematocrit 31. 2. Acute on chronic renal failure. Creatinine continues to climb as does his BUN at 54 and 2.86. We may have to stop his Lasix, although he still appears to be in pulmonary edema. 3. Acute on chronic congestive heart failure with pulmonary edema. 4. Ischemic cardiomyopathy. 5. Pneumonia. 6. Chronic atrial fibrillation. PLAN: We will continue to follow. We will restart his colchicine for his gout. We will follow his blood pressures as well as his volume status. We will continue Lasix today, but certainly, we may have to stop if his creatinine continues to climb. cc: Nick Rodney MD
[2018-11-02] MEDS: PRAVACHOL PO SCH (21:52)
[2018-11-02] MEDS: COLCRYS PO SCH (21:52)
[2018-11-02] MEDS: NICODERM PATCH TD PRN (21:52)
[2018-11-03] MEDS: NORCO-10 PO PRN ×3 (03:13→16:49)
[2018-11-03] MEDS: XOPENEX NEB INH SCH ×4 (03:17→21:12)
[2018-11-03] MEDS: MAXIPIME 1 GM/D5W 1 GM/50 ML IVPB IV SCH ×3 (06:28→20:24)
[2018-11-03] MEDS: PLETAL PO SCH ×3 (06:28→18:27)
[2018-11-03] MEDS: PRILOSEC PO SCH (06:28)
[2018-11-03 06:35] LABS: HEMATOCRIT 28.3 % (42.0-52.0); HEMOGLOBIN 8.3 g/dL (14.0-18.0); MCHC 29.3 g/dL (33-37); MCV 85.2 FL (81-99); MPV 9.8 FL (7.4-10.4); RBC 3.32 XMIL (4.7-6.1); RDW 16.5 % (11.5-14.5); WBC 10.96 X1000 (4.8-10.8)
[2018-11-03 07:18] LABS: CALCIUM 8.9 mg/dL (8.8-10.2); CREATININE 3.4 mg/dL (0.7-1.2); POTASSIUM 4.8 mmol/L (3.5-5.1)
[2018-11-03] MEDS ORDERED: VANCOMYCIN 1,300 MG in NS 250 ML IV SCH (09:30)
[2018-11-03] MEDS: LASIX IV SCH (09:56)
[2018-11-03] MEDS: COLCRYS PO SCH ×2 (09:56→20:24)
[2018-11-03] MEDS: ASPIRIN EC PO SCH (09:56)
[2018-11-03] MEDS: ELIQUIS PO SCH ×2 (09:57→20:24)
[2018-11-03] MEDS: BETAPACE PO SCH ×2 (09:57→20:24)
[2018-11-03] MEDS: SYMBICORT 160/4.5 MICROGM INHALER INH SCH ×2 (10:50→21:12)
[2018-11-03] MEDS: SPIRIVA INH SCH (10:51)
[2018-11-03] MEDS: PRAVACHOL PO SCH (20:24)
[2018-11-03] MEDS ORDERED: LASIX PO SCH (21:00)
--- NOTE | 2018-11-03 22:37 | PROGRESS NOTE ---
DATE: 11/03/2018 SUBJECTIVE: The patient states overall he is feeling a little bit better. He is still having some cough, congestion and shortness of breath. Nausea has improved. OBJECTIVE: Temperature 97, pulse 63, respiratory 18, BP 106/58. General: The patient is awake, alert. He is in no distress. He is feeling better overall. HEENT: Normocephalic. Neck supple. CV: Regular rate. Chest clear. Abdomen soft. Extremities: Moves all extremities. Trace edema. ASSESSMENT: 1. Chronic systolic congestive heart failure. 2. Ischemic cardiomyopathy. 3. Pneumonia. 4. Chronic atrial fibrillation. 5. Chronic stage 3 kidney disease. 6. Gout. PLAN: We will stop the patient's Lasix, as his creatinine has climbed as has his BUN. We will continue to follow. We will not restart IV fluids. We will continue antibiotics. We will recheck labs in the a.m. and adjust medicines if needed. cc: Nick Rodney MD
[2018-11-04] MEDS: MIRALAX PO SCH ×2 (00:08→09:44)
[2018-11-04] MEDS: XOPENEX NEB INH SCH ×3 (03:24→15:50)
[2018-11-04] MEDS: NORCO-10 PO PRN ×4 (04:32→23:40)
[2018-11-04] MEDS: PLETAL PO SCH ×2 (06:26→17:05)
[2018-11-04] MEDS: PRILOSEC PO SCH (06:26)
[2018-11-04] MEDS ORDERED: NS 1,000 ML IV SCH (07:15)
[2018-11-04] MEDS: SYMBICORT 160/4.5 MICROGM INHALER INH SCH ×2 (09:28→19:52)
[2018-11-04] MEDS: SPIRIVA INH SCH (09:29)
[2018-11-04] MEDS: MAXIPIME 1 GM/D5W 1 GM/50 ML IVPB IV SCH ×2 (09:42→21:30)
[2018-11-04] MEDS: ASPIRIN EC PO SCH (09:42)
[2018-11-04] MEDS: COLCRYS PO SCH (09:43)
[2018-11-04] MEDS: BETAPACE PO SCH ×2 (09:44→21:29)
[2018-11-04] MEDS: ELIQUIS PO SCH ×2 (09:47→21:30)
--- NOTE | 2018-11-04 10:52 | Diag Imaging Result Doc PS360 ---
EXAM: US RENAL 2 (RETROPER) COMPLETE INDICATION: decreased renal function TECHNIQUE: COMPARISON: None. FINDINGS: There is a 3.1 cm simple cyst associated with the left kidney. There is a small renal cortical defects suggesting a scar that was also seen on the previous study. The kidneys are normal in echotexture, otherwise, with no solid mass or hydronephrosis. Right kidney measures 9.2 cm and the left kidney measures 11.8 cm in the greatest longitudinal axes. The right renal cortex measures 1.1 cm and the left renal cortex measures 1.2 cm in thickness. The urinary bladder is partially distended and is grossly unremarkable, otherwise. IMPRESSION: Simple left renal cyst and suggestion of a small focal right renal cortical scar that is stable. Unremarkable, otherwise. Electronically signed by Pipe Campos 11/04/2018 10:50 AM
--- NOTE | 2018-11-04 18:13 | NEPHROLOGY CONSULTATION ---
DATE: 11/04/2018 REASON FOR CONSULTATION: Acute kidney injury. HISTORY OF PRESENT ILLNESS: Mr. Curtis is a 68-year-old man with coronary disease, cardiomyopathy, defibrillator, atrial fibrillation, hypertension, COPD, low hearing, etc. He was admitted to the hospital on the 12th of this month with hypotension and dizziness. He had blood pressure as low as 84/53 during the first 24 hours of his admission. Hypotension has been an intermittent but persistent problem. In this context, his creatinine was elevated above his baseline. Baseline creatinine 1.5, 2.7 on presentation, improved to 2.1 and has now increased progressively to 3.4 as of yesterday. He denies pain, suprapubic pain, nausea or vomiting. He does admit that his urine output is somewhat low. His urine looks normal in appearance. No swelling, no chest discomfort. He has been treated with diuretics and is net -2.3 kg since admission. We were asked to assist in his management. PAST MEDICAL HISTORY: As above. MEDICATIONS: Current medications include [place], Maxipime, Xopenex, Symbicort, Betapace, Pravachol, Pletal, Prilosec, Spiriva, aspirin, NicoDerm, Atarax, Zofran, Phenergan, Colcrys, MiraLAX, Eliquis. ALLERGIES: Levofloxacin, meperidine, morphine, gabapentin. SOCIAL HISTORY: Former smoker. No alcohol. 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 None in several years. He lives alone. FAMILY HISTORY: Otherwise noncontributory. REVIEW OF SYSTEMS: Otherwise noncontributory. PHYSICAL EXAMINATION: Blood pressure 110/81, heart rate 79, respirations 18, afebrile. Generally, elderly man appears older than stated age. No acute distress. Skin is warm and dry. Pupils are equal. Conjunctivae are pale. Oropharynx has some coating of the tongue but moist membranes. Neck is supple. Trachea is midline. Neck vein distentions are not visible. No hepatojugular reflux. PMI is nondisplaced. In fact, difficult to palpate. Auscultation demonstrates an irregular rhythm but rate controlled. Lungs have equal breath sounds. No crackles or wheezes. Abdomen is soft, nontender. Bowel sounds present. No organomegaly. Extremities have no edema, clubbing or cyanosis. Neurologic exam grossly nonfocal. IMPRESSION AND PLAN: Acute kidney injury. Intravascular volume depletion is the most likely cause of his acute kidney injury. His last chest x-ray, however, showed pulmonary edema. His renal ultrasound performed today shows right kidney 9.2 cm, left kidney 11.8 cm with no evidence of hydronephrosis. Medications are dosed appropriately. Diuretics have been discontinued. I will stop his colchicine, though he takes that regularly at home. No other medication changes are required at this time. He does have gentle intravenous fluids ordered at 75 mL/h, which I think is appropriate and will continue. cc: Osito Newsome MD
[2018-11-04 19:30] LABS: UR CREAT RANDOM 68.6 mg/dL (14-26); UR PROT RANDOM 143.3 mg/dL
[2018-11-04 19:45] LABS: URINE SOURCE CLEAN CATCH
[2018-11-04 19:46] LABS: BILIRUBIN URINE NEGATIVE (NEGATIVE); BLOOD URINE 2+ (NEGATIVE); CLARITY CLEAR (CLEAR); COLOR YELLOW; GLUCOSE URINE NEGATIVE (NEGATIVE); KETONE URINE TRACE mg/dL (NEGATIVE); LEUKOCYTES URINE TRACE (NEGATIVE); NITRITE URINE NEGATIVE (NEGATIVE); PROTEIN URINE 1+(30 mg/dL) mg/dL (NEGATIVE); SP GRAVITY URINE 1.015; UROBILINOGEN URINE NORMAL
[2018-11-04] MEDS: XOPENEX NEB INH PRN (19:52)
[2018-11-04] MEDS: PRAVACHOL PO SCH (21:29)
--- NOTE | 2018-11-04 23:18 | PROGRESS NOTE ---
DATE: 11/04/2018 SUBJECTIVE: Patient has no new complaints. States that he is still very tired and fatigued, notes this has been going on for quite some time. States he has difficulty walking with a walker. He has been falling at home. PHYSICAL EXAM: Vital signs: Temperature 97.5, pulse 63, respiratory 18, BP 102/58. General: Patient is awake. He is in no current distress. He is very talkative today. HEENT: Normocephalic. Neck: Supple. CARDIOVASCULAR: Regular rate. Chest: Clear. Abdomen: Soft. Extremities: Moves all extremities. ASSESSMENT: 1. Acute on chronic renal failure. Creatinine continues to climb, BUN is up to 62, creatinine is 3.4. At this point, we will ask Nephrology to see in consultation. We will stop his Lasix. We will add 1 L of normal saline as it does appear that he has gotten volume depleted. We will decrease his Eliquis and will recheck in the a.m. 2. Chronic atrial fibrillation. 3. Pneumonia. 4. Acute on chronic congestive heart failure with ischemic cardiomyopathy. cc: Nick Rodney MD [facility]
[2018-11-05] MEDS: XOPENEX NEB INH SCH ×5 (02:32→22:37)
[2018-11-05] MEDS: NORCO-10 PO PRN ×3 (05:42→18:24)
[2018-11-05] MEDS: PRILOSEC PO SCH ×2 (05:42→06:01)
[2018-11-05] MEDS: PLETAL PO SCH ×2 (05:42→18:19)
[2018-11-05 06:08] LABS: HEMATOCRIT 28.2 % (42.0-52.0); HEMOGLOBIN 8.2 g/dL (14.0-18.0); MCH 24.4 PG (27-31); MCHC 29.1 g/dL (33-37); MCV 83.9 FL (81-99); MPV 9.6 FL (7.4-10.4); RBC 3.36 XMIL (4.7-6.1); RDW 16.6 % (11.5-14.5); WBC 8.61 X1000 (4.8-10.8)
[2018-11-05 06:39] LABS: ALBUMIN 3.1 g/dL (3.5-5.0); CALCIUM 8.9 mg/dL (8.8-10.2); CREATININE 3.1 mg/dL (0.7-1.2); MAGNESIUM 2.2 mg/dL (1.5-2.7); POTASSIUM 4.2 mmol/L (3.5-5.1); TOTAL BILIRUBIN 0.7 mg/dL (0.20-1.00); TOTAL PROTEIN 7.3 g/dL (6.3-8.3)
[2018-11-05] MEDS ORDERED: NS 1,000 ML IV SCH (07:15)
--- NOTE | 2018-11-05 08:15 | Diag Imaging Result Doc PS360 ---
EXAM: CHEST-2 VIEWS HISTORY: hypoxia TECHNIQUE: Chest two views COMPARISON: 11/02/2018 FINDINGS: The lungs are well expanded. There are mild increased interstitial markings in the lower lungs. The heart is borderline mildly prominent. The vessels are not distended. There is a right-sided pacemaker. IMPRESSION: Atelectasis versus small infiltrates in the right lung base in addition to atelectasis in the left lung base. Electronically signed by Jacob Scott 11/05/2018 8:12 AM
[2018-11-05] MEDS: ASPIRIN EC PO SCH (08:29)
[2018-11-05] MEDS: ELIQUIS PO SCH ×2 (08:29→20:51)
[2018-11-05] MEDS: BETAPACE PO SCH ×2 (08:29→20:51)
[2018-11-05] MEDS: MIRALAX PO SCH (08:30)
[2018-11-05] MEDS: SPIRIVA INH SCH (11:00)
[2018-11-05] MEDS: SYMBICORT 160/4.5 MICROGM INHALER INH SCH ×2 (11:00→22:37)
--- NOTE | 2018-11-05 14:52 | NEPHROLOGY PROGRESS NOTE ---
DATE: 11/05/2018 TIME SEEN: 0815 hours. SUBJECTIVE: Mr. Curtis is sitting in a chair. He has just completed his chest x-ray. He states that he just hurts all over. OBJECTIVE: His most recent vital signs: Temperature 97.4 degrees, blood pressure 110/64, heart rate 80, respirations 18. He is on 2 L nasal cannula. Last recorded saturation 100%. He has had 1230 in, 950 out to void. General: On physical examination, this is a 68-year-old white male resting quietly in a chair. He appears chronically ill, no acute distress. Skin: Warm and dry. HEENT: Normocephalic, atraumatic. Conjunctiva is pale pink. He has HUGO. Mucous membranes are dry. Neck: Supple. Trachea midline. He has no evidence of JVD in the upright position. Cardiovascular: He has irregularly irregular rate and rhythm. No murmur or gallop appreciated. Lungs: Diminished in the posterior base. He is currently on O2, equal excursion. Abdomen: Soft, nontender. Positive bowel sounds. Genitourinary: Not inspected. Adequate void. Extremities: Have no edema. No clubbing or cyanosis. Neurological: Alert and oriented x3. LABS: Sodium 134, potassium 4.2, chloride is 96, CO2 24. BUN 59, creatinine 3.1, glucose is 112, anion gap of 14, calcium 8.9, albumin of 3.1, magnesium 2.2. White count 8.61, hemoglobin 8.2, hematocrit 28.2, with a platelet count of 280. ASSESSMENT AND PLAN: 1. Acute kidney injury, more than likely secondary to intravascular volume depletion. The patient's BUN and creatinine have slowly improved from yesterday. Creatinine is down to 3.1 with adequate urine output documented. We will monitor. 2. Electrolytes and acid-base balance. These are acceptable. 3. Anemia. This is low, but stable. 4. Shoulder pain. The patient has had his colchicine stopped. He continues to be followed by the primary care. I would like to thank you for allowing us to follow with this patient. Dictated by AKIKO Benitez for Osito Newsome MD Face to face encounter, data reviewed, discussed with Sacha Castro on 11/06/18. I agree with the above assessment and plan of care. cc: AKIKO Benitez MD [facility]TD[facility]
--- NOTE | 2018-11-05 19:12 | PROGRESS NOTE ---
DATE: 11/05/2018 SUBJECTIVE: Patient still states that he is extremely weak bilateral upper and lower extremities. Notes that he actually got exhausted trying to get the call light out between the bed and the bed rail. Notes he has not really been out of bed. PHYSICAL EXAM: Vital Signs: Temperature 97.5, pulse 63, respiratory rate 18, BP 106/58. General: Patient is currently in no respiratory distress. He is pleasant to talk with. He is very hard of hearing, but this is chronic. HEENT: Normocephalic. Neck: Supple. CARDIOVASCULAR: Regular rate. Chest: Clear. No crackles, no wheezing. Abdomen: Soft, nondistended. Extremities: Moves all extremities, although generalized weakness. ASSESSMENT: 1. Acute on chronic renal failure. Creatinine actually slightly improved at 3.1 with a BUN slightly improved down to 59. We will give him another liter bolus today. We will continue to follow. Hopefully, his kidneys will continue to improve and will return back to their baseline function. 2. Anemia of chronic disease. 3. Pneumonia. 4. Chronic atrial fibrillation, currently rate controlled. 5. Gout. We will continue to hold colchicine per Nephrology. PLAN: We will continue physical therapy. Continue to follow his kidneys. Further orders as needed. cc: Nick Rodney MD
[2018-11-05] MEDS: PRAVACHOL PO SCH (20:51)
[2018-11-06] MEDS: NORCO-10 PO PRN ×4 (00:23→22:42)
[2018-11-06] MEDS: XOPENEX NEB INH SCH ×4 (03:09→22:32)
[2018-11-06] MEDS: PLETAL PO SCH ×2 (06:09→17:33)
[2018-11-06] MEDS: PRILOSEC PO SCH (06:10)
[2018-11-06 06:11] LABS: HEMOGLOBIN 8.8 g/dL (14.0-18.0); MCHC 29.3 g/dL (33-37); MCV 85.2 FL (81-99); MPV 9.7 FL (7.4-10.4); RBC 3.52 XMIL (4.7-6.1); WBC 8.47 X1000 (4.8-10.8)
[2018-11-06 06:35] LABS: ALBUMIN 3.4 g/dL (3.5-5.0); MAGNESIUM 2.3 mg/dL (1.5-2.7); PHOSPHORUS 5.1 mg/dL (2.7-4.5); POTASSIUM 4.4 mmol/L (3.5-5.1); TOTAL BILIRUBIN 0.8 mg/dL (0.20-1.00); TOTAL PROTEIN 8.1 g/dL (6.3-8.3)
[2018-11-06] MEDS: BETAPACE PO SCH ×2 (09:15→20:47)
[2018-11-06] MEDS: MIRALAX PO SCH (09:15)
[2018-11-06] MEDS: ASPIRIN EC PO SCH (09:15)
[2018-11-06] MEDS: ELIQUIS PO SCH ×2 (09:15→20:47)
[2018-11-06] MEDS: SPIRIVA INH SCH (10:41)
[2018-11-06] MEDS: SYMBICORT 160/4.5 MICROGM INHALER INH SCH ×2 (10:41→22:32)
--- NOTE | 2018-11-06 12:08 | PROGRESS NOTE ---
DATE: 11/06/2018 SUBJECTIVE: Patient notes he is still very weak. He attempted to participate with physical therapy but he got very tired. Denies any chest pain or palpitations. Denies any other complaints currently. OBJECTIVE: Vital Signs: Temperature 97.5, pulse 63, respiratory 18, and BP 102/58. General: Patient is awake. He is in no current respiratory distress. He is extremely hard of hearing. HEENT: Normocephalic. Neck: Supple. CARDIOVASCULAR: Regular rate. Chest: Clear. Abdomen: Soft. Extremities: Moves all extremities. ASSESSMENT: 1. Generalized weakness. 2. Acute on chronic renal failure with creatinine slightly better at 54 and 3.0. 3. Pneumonia. 4. Chronic atrial fibrillation. 5. Gout. PLAN: Patient certainly is at a point in which he can transition to rehab. However, he refuses to go to rehab and states he is going home. Concerned about his generalized weakness and inability to carry out any activities of daily living while he is at home. Therefore, we will continue him in the hospital for a couple more days with physical therapy to give him the best chance of being successful and to stay at home after discharge. We will continue IV fluids today. Recheck his labs in the morning. Hopefully, his renal function will return back to his baseline. cc: Nick Rodney MD
[2018-11-06] MEDS: NS 1,000 ML IV SCH ×2 (13:00→23:39)
--- NOTE | 2018-11-06 18:27 | NEPHROLOGY PROGRESS NOTE ---
DATE: 11/06/2018 SUBJECTIVE: He has no shortness of breath. No nausea or vomiting. He remains weak and is trying to work with physical therapy. OBJECTIVE: Blood pressure 117/67, heart rate 80, respirations 18, afebrile. Intake 1.1 L, output 700 mL. On physical exam, no acute distress. Skin is warm and dry. Neck veins are not distended. Heart is regular. No gallops. Lungs are equal. No crackles. Abdomen is soft, nontender. Bowel sounds present. Extremities: No edema, clubbing or cyanosis. IMPRESSION AND PLAN: Acute kidney injury overlying chronic kidney disease. We will administer normal saline at 100 mL/h and observe his response over the next 48 hours. Otherwise no medical changes. Electrolytes and acid-base are acceptable. cc: Osito Newsome MD
[2018-11-06] MEDS: PRAVACHOL PO SCH (20:47)
[2018-11-07] MEDS: XOPENEX NEB INH SCH ×2 (03:11→09:48)
[2018-11-07] MEDS: NORCO-10 PO PRN ×2 (04:31→10:40)
[2018-11-07] MEDS: PLETAL PO SCH (05:20)
[2018-11-07] MEDS: PRILOSEC PO SCH (06:18)
[2018-11-07 07:25] LABS: BASO% 1.2 % (0.0-0.8); EOS# 0.26 X1000 (0.0-0.7); EOS% 3.1 % (0.0-10.0); HEMATOCRIT 28.7 % (42.0-52.0); HEMOGLOBIN 8.4 g/dL (14.0-18.0); IMM GRAN# 0.08 X1000 (0.0-0.04); IMM GRAN% 0.9 % (0.0-0.5); LYMPH# 1.51 X1000 (1.2-3.4); LYMPH% 17.9 % (20.5-51.1); MCH 24.8 PG (27-31); MCHC 29.3 g/dL (33-37); MCV 84.7 FL (81-99); MONO% 11.9 % (1.7-9.3); MPV 10.1 FL (7.4-10.4); NEUT# 5.48 X1000 (1.4-6.5); PLT 289 X1000 (130-400); RBC 3.39 XMIL (4.7-6.1); RDW 16.8 % (11.5-14.5); WBC 8.43 X1000 (4.8-10.8)
[2018-11-07 07:40] LABS: CALCIUM 8.8 mg/dL (8.8-10.2); CREATININE 2.7 mg/dL (0.7-1.2); PHOSPHORUS 4.6 mg/dL (2.7-4.5); POTASSIUM 4.4 mmol/L (3.5-5.1)
[2018-11-07 08:12] VITALS: BP 107/54
[2018-11-07] MEDS: SPIRIVA INH SCH (09:47)
[2018-11-07] MEDS: SYMBICORT 160/4.5 MICROGM INHALER INH SCH (09:47)
[2018-11-07] MEDS: MIRALAX PO SCH (10:40)
[2018-11-07] MEDS: BETAPACE PO SCH (10:40)
[2018-11-07] MEDS: ELIQUIS PO SCH (10:40)
[2018-11-07] MEDS: ASPIRIN EC PO SCH (10:40)
--- NOTE | 2018-11-07 22:11 | DISCHARGE SUMMARY ---
ADMISSION DATE: 10/27/2018 DISCHARGE DATE: 11/07/2018 DIAGNOSES: 1. Acute congestive heart failure exacerbation secondary to ischemic cardiomyopathy. 2. Pneumonia. 3. Chronic atrial fibrillation. 4. Acute kidney injury in the setting of chronic kidney disease. 5. Gout. CONSULTS: Dr. Osito Newsome, nephrology . DIAGNOSTICS: Chest x-ray 10/27/2018 revealed cardiomegaly with pulmonary edema plus or minus pneumonia, 10/28 chest x-ray revealed improvement in pulmonary edema with a infiltrate or pneumonia throughout the right lung. 10/31/2018 chest x-ray revealed improvement and ill-defined interstitial infiltrates. 11/02/2018 chest x-ray revealed internal improvement with decreased pulmonary edema. 11/04/2018 renal ultrasound revealed simple left renal cyst suggestive of a small focal right renal cortical scar that is stable, otherwise unremarkable. 11/05/2018 chest x-ray revealed atelectasis versus small infiltrates in the right lung base as well as a left lung base. Microbiology. Blood cultures x2 revealed no growth after 5 days. HOSPITAL COURSE: Mr. Curtis presented to the emergency room with low blood pressure and dizziness. He was found to be in an acute congestive heart failure exacerbation secondary to ischemic cardiomyopathy for which he was diuresed, cumulative he was -5 L. He received antibiotic coverage of cefepime initially, vancomycin was added on the as his creatinine climbed, cultures were negative. It was discontinued on the . His colchicine was also discontinued secondary to his increasing creatinine. He remained afebrile with no further leukocytosis. Throughout the hospitalization his atrial fibrillation remained controlled. On arrival to the hospital he appeared to be in heart failure but he was also hypotensive for which he was placed on dobutamine and admitted to ICU. Cardiology was consulted with medication changes. Thankfully he was able to be weaned off the dobutamine and with no recurrence. DISCHARGE PHYSICAL EXAM: Vital signs: Blood pressure is 107/54 with a heart rate of 77, respirations 18, temperature is 97.3 degrees oral with room air saturations 97-98%. Cardiovascular: Regular rate and rhythm. S1 and S2 appreciated. Pulmonary: Breath sounds are clear with no increased work of breathing noted. Gastrointestinal: Abdomen soft, nontender, nondistended with bowel sounds in all 4 quadrants. Neurologic: He is alert and oriented x3. DISCHARGE MEDICATIONS: Eliquis 5 mg p.o. b.i.d., enteric-coated aspirin 81 mg p.o. daily, [place] 7.5 p.o. b.i.d., omeprazole 40 mg p.o. daily, pravastatin 40 mg p.o. daily, sotalol 80 mg p.o. b.i.d., Spiriva 1 puff daily, Omnicef 300 mg p.o. b.i.d. for 5 days and Pletal 60 mg p.o. b.i.d. He is being discharged home in stable condition with family members. He will continue to be followed by [facility]. TIME SPENT: Greater than 30 minutes. Dictated by AKIKO Dominguez for Nick Rodney MD This chart was documented by, AKIKO Dominguez and accurately reflects the services performed, treatment plan and medical decisions as attested by the providers signature Nick Rodney MD. cc: AKIKO Dominguez MD
--- NOTE | 2018-11-08 04:25 | DISCHARGE SUMMARY ---
ADMISSION DATE: 10/27/2018 DISCHARGE DATE: 11/07/2018 ADDENDUM: Patient seen and examined by myself. Full note dictated and discussed with nurse practitioner. The patient's creatinine has improved back down to 2.6. He is eating and drinking much better. The patient still complains of being generally weak. I again offered rehab. He again declined stating that he is not going to rehab and he is going home. The patient be discharged home. Certainly, rehab would be in his best interest although as noted multiple times he has refused any effort. He will continue antibiotics at home. He will follow up outpatient with his primary care. Please see full note. cc: Nick Rodney MD
== END 2018-11-07 12:32 | disposition home health service (06) | DRG 291 ==
LOC: P.ED 09:49 → SUATTDRO 13:09 → P.ICU 13:09 → P.MEDSURG 10-31 15:29
PROVIDERS: ATTEND Family Medicine
CPT/HCPCS: 36415; 71010; 71020; 71045; 71046; 74000; 74018; 76770; 80048; 80053; 80069; 81003; 82550; 82570; 83605; 83735; 83880; 84100; 84156; 84300; 84484; 85025; 85027; 87040; 87205; 93005; 94640; 94761; 96365; 97163; 97530; 99285; 99291; A9270; J0692; J0696; J1250; J1940; J2405; J2550; J3370; J7030; J7050